=== PATIENT | male | born 1955 | race African-American/Black ===

== ENCOUNTER 2023-04-27 18:55 | Inpatient (IN) | payer MEDICARE, MEDICAID ==
[~2023-04-27] VITALS: Ht 185.4 cm; Wt 84.8 kg
[2023-04-27] MEDS ORDERED: ONDANSETRON HCL 4MG/2ML INJ IV ONE (20:30)
[2023-04-27] MEDS ORDERED: PANTOPRAZOLE SODIUM 40 MG/VIAL IV ONE (20:45)
[2023-04-27 23:31] LABS: HEMATOCRIT. 34.2 % (42.0-52.0); MEAN CORPUSCULAR HEMOGLOBIN 27.6 pg (28.0-32.0); MEAN CORPUSCULAR HGB CONC 32.1 g/dL (31.0-37.0); MEAN CORPUSCULAR VOLUME 86.1 fL (80.0-94.0); MEAN PLATELET VOLUME 7.4 fl (7.4-10.4); PLATELET 378 x1000/uL (130-400); RED BLOOD CELL COUNT 3.97 mill/uL (4.7-6.1); RED CELL DISTRIBUTION WIDTH 13.4 % (11.6-14.6); WHITE BLOOD COUNT 14.5 x1000/uL (4.5-11.0)
[2023-04-27 23:38] LABS: DIFFERENTIAL COMMENT 1
[2023-04-27 23:40] LABS: PROTHROMBIN TIME 10.8 sec (9.6-11.0)
[2023-04-27 23:43] LABS: CHLORIDE 106 mEq/L (98-107); INDEX HEMOLYSI 1 (1-3); INDEX ICTERIC 1 (1-4); INDEX LIPEMIC 1 (1-3); POTASSIUM 4.2 mEq/L (3.5-5.1); SODIUM 139 mEq/L (136-145)
[2023-04-27] MEDS ORDERED: ONDANSETRON HCL 4MG/2ML INJ IV NR (23:45)
[2023-04-27] MEDS ORDERED: PANTOPRAZOLE SODIUM 40 MG/VIAL IV NR (23:45)
[2023-04-27 23:53] LABS: ALANINE AMINOTRANSFERASE 13 IU/L (13-61); ALBUMIN 2.7 g/dL (3.4-5.0); ASPARTATE AMINOTRANSFERASE 8 IU/L (15-37); BILIRUBIN TOTAL 0.4 mg/dL (0.1-1.0); CARBON DIOXIDE 27 mEq/L (21-32); GLUCOSE 272 mg/dL (70-105); PROTEIN TOTAL 7.6 g/dL (6.0-8.3); UREA NITROGEN BLOOD 68 mg/dL (7-21)
[2023-04-28 00:08] LABS: CREATININE 7.1 mg/dL (0.6-1.3)
[2023-04-28 00:09] LABS: TROPONIN I HIGH SENSITIVITY 109 ng/L (<78)
[2023-04-28 00:24] LABS: PLATELET ESTIMATE NORMAL
[2023-04-28] MEDS ORDERED: LORAZEPAM 0.5MG TABLET PO PRN (07:30)
[2023-04-28] MEDS ORDERED: IPRATROPIUM/ALBUTEROL 0.5-3(2.5)MG/3ML NEB HHN PRN (07:30)
[2023-04-28] MEDS ORDERED: ACETAMINOPHEN 325MG TABLET PO PRN ×2 (07:30)
[2023-04-28] MEDS ORDERED: DOCUSATE SODIUM 100MG CAPSULE PO PRN (07:30)
[2023-04-28] MEDS ORDERED: ONDANSETRON HCL 4MG/2ML INJ IV PRN (07:30)
[2023-04-28] MEDS ORDERED: HYDROCODONE/ACETAMINOPHEN 5/325MG TABLET PO PRN (07:30)
[2023-04-28] MEDS ORDERED: NALOXONE HCL 0.4MG/ML VIAL IV PRN (07:45)
[2023-04-28 09:15] LABS: TROPONIN I HIGH SENSITIVITY 112 ng/L (<78)
[2023-04-28] MEDS: PANTOPRAZOLE SODIUM 40 MG/VIAL IV SCH ×2 (10:07→17:19)
[2023-04-28 12:30] VITALS: BP 196/82; PULSE 85; RESP 20; TEMP 98.4
[2023-04-28] MEDS: BLOOD SUGAR DIAGNOSTIC STRIP TEST SCH ×3 (12:41→21:06)
[2023-04-28] MEDS: CLONIDINE 0.1MG TABLET PO PRN (12:44)
[2023-04-28] MEDS ORDERED: DEXTROSE 50% WATER 50ML SYRINGE IV PRN (12:45)
[2023-04-28 12:49] VITALS: BP 196/82; PULSE 85; RESP 20; TEMP 98.4
[2023-04-28] MEDS: METOCLOPRAMIDE HCL 10MG/2ML VIAL IV SCH ×5 (13:18→23:39)
[2023-04-28] MEDS: DOCUSATE SODIUM 100MG CAPSULE PO SCH ×2 (13:18→13:48)
[2023-04-28] MEDS: INSULIN LISPRO 100 UNITS/ML SUBCUT SCH ×3 (13:19→21:06)
[2023-04-28] MEDS: SODIUM CHLORIDE 0.9% 1,000 ML IV SCH (13:45)
[2023-04-28 14:45] LABS: THYROID STIMULATING HORMONE 0.34 uIU/mL (0.36-3.74)
[2023-04-28 15:31] LABS: *AMPHETAMINES SCREEN URINE NEGATIVE (NEGATIVE); *BARBITURATES SCREEN URINE NEGATIVE (NEGATIVE); *BENZODIAZEPINES SCREEN URINE NEGATIVE (NEGATIVE); *COCAINE SCREEN URINE NEGATIVE (NEGATIVE); CANNABINOID URINE SCREEN NEGATIVE (NEGATIVE); ECSTASY MDMA SCREEN URINE NEGATIVE (NEGATIVE); METHADONE URINE SCREEN NEGATIVE (NEGATIVE); OPIATES URINE SCREEN NEGATIVE (NEGATIVE); PHENCYCLIDINE URINE SCREEN NEGATIVE (NEGATIVE)
[2023-04-28 16:00] VITALS: BP 161/66; PULSE 81; RESP 20; TEMP 97.5
[2023-04-28] MEDS ORDERED: CEFTRIAXONE 1GM PREMIX 50 ML IV SCH (16:00)
[2023-04-28] MEDS: CEFTRIAXONE 1,000 MG in DEXTROSE 5% WATER 50 ML IV SCH (17:20)
[2023-04-28 18:00] VITALS: BP 161/66; PULSE 73; RESP 20; TEMP 97.8
[2023-04-28 20:00] VITALS: PULSE 84; RESP 18; TEMP 98.6
[2023-04-28] MEDS ORDERED: HYDRALAZINE 20MG/ML VIAL IV PRN (22:30)
[2023-04-28] MEDS ORDERED: IRON SUCROSE COMPLEX 100 MG/5 ML ML IV SCH (23:00)
[2023-04-29] VITALS: BP 117/47; PULSE 98; RESP 18; TEMP 97.8
[2023-04-29 04:00] VITALS: BP 111/52; PULSE 96; RESP 18; TEMP 97
[2023-04-29] MEDS: METOCLOPRAMIDE HCL 10MG/2ML VIAL IV SCH ×3 (05:02→18:42)
[2023-04-29] MEDS: BLOOD SUGAR DIAGNOSTIC STRIP TEST SCH ×4 (05:46→21:15)
[2023-04-29] MEDS: IRON SUCROSE COMPLEX 100 MG/5 ML ML IV SCH (08:00)
[2023-04-29] MEDS: INSULIN LISPRO 100 UNITS/ML SUBCUT SCH ×4 (08:10→21:14)
[2023-04-29 09:00] VITALS: BP 181/72; PULSE 89; RESP 18; TEMP 98.1
[2023-04-29] MEDS: DOCUSATE SODIUM 100MG CAPSULE PO SCH ×3 (09:00→17:00)
[2023-04-29] MEDS: PANTOPRAZOLE SODIUM 40 MG/VIAL IV SCH ×2 (09:00→18:42)
[2023-04-29] MEDS: CLONIDINE 0.1MG TABLET PO PRN (10:18)
[2023-04-29 12:00] VITALS: BP_SYST 13; BP_SYST 163; BP_DIAS 70; PULSE 87; RESP 18; TEMP 97.9
[2023-04-29] MEDS: AMLODIPINE 10MG TABLET PO SCH (12:21)
[2023-04-29 16:00] VITALS: BP 118/79; PULSE 80; RESP 20; TEMP 97.9
[2023-04-29] MEDS: CEFTRIAXONE 1,000 MG in DEXTROSE 5% WATER 50 ML IV SCH (18:42)
[2023-04-29] MEDS: SODIUM CHLORIDE 0.9% 1,000 ML IV SCH (18:42)
[2023-04-29 20:00] VITALS: BP 161/75; PULSE 87; RESP 19; TEMP 98.4
[2023-04-30] VITALS: BP 135/56; PULSE 81; RESP 20; TEMP 98.2
[2023-04-30] MEDS: METOCLOPRAMIDE HCL 10MG/2ML VIAL IV SCH ×4 (00:20→17:02)
[2023-04-30 04:00] VITALS: BP 157/68; PULSE 83; RESP 20; TEMP 98.1
[2023-04-30] MEDS: BLOOD SUGAR DIAGNOSTIC STRIP TEST SCH ×4 (07:40→21:03)
[2023-04-30] MEDS: INSULIN LISPRO 100 UNITS/ML SUBCUT SCH ×4 (08:02→21:02)
[2023-04-30] MEDS: PANTOPRAZOLE SODIUM 40 MG/VIAL IV SCH ×2 (08:02→16:18)
[2023-04-30] MEDS: DOCUSATE SODIUM 100MG CAPSULE PO SCH ×3 (08:02→16:18)
[2023-04-30] MEDS: IRON SUCROSE COMPLEX 100 MG/5 ML ML IV SCH (08:02)
[2023-04-30] MEDS: AMLODIPINE 10MG TABLET PO SCH (08:03)
[2023-04-30 08:06] VITALS: BP 160/69; PULSE 94; RESP 20; TEMP 98.6
[2023-04-30] MEDS: SODIUM CHLORIDE 0.9% 1,000 ML IV SCH (08:11)
[2023-04-30 11:56] VITALS: BP 146/55; PULSE 94; RESP 20; TEMP 98.6
[2023-04-30 12:29] LABS: CHLORIDE 109 mEq/L (98-107); INDEX HEMOLYSI 1 (1-3); INDEX ICTERIC 1 (1-4); INDEX LIPEMIC 1 (1-3); SODIUM 141 mEq/L (136-145)
[2023-04-30 12:37] LABS: ALANINE AMINOTRANSFERASE 10 IU/L (13-61); ALBUMIN 2.6 g/dL (3.4-5.0); ASPARTATE AMINOTRANSFERASE 16 IU/L (15-37); BILIRUBIN TOTAL 0.3 mg/dL (0.1-1.0); CALCIUM 8.7 mg/dL (8.5-10.1); CARBON DIOXIDE 23 mEq/L (21-32); GLUCOSE 192 mg/dL (70-105); UREA NITROGEN BLOOD 75 mg/dL (7-21)
[2023-04-30 13:03] LABS: CREATININE 6.7 mg/dL (0.6-1.3)
[2023-04-30 13:51] LABS: T4 FREE 1.03 ng/dL (0.76-1.46)
[2023-04-30 14:12] LABS: VITAMIN B12 SERUM 798 pg/mL (211-911)
[2023-04-30 14:46] LABS: FOLIC ACID (FOLATE) SERUM > 20.00 ng/mL (>5.38)
[2023-04-30 16:04] VITALS: BP 168/54; PULSE 93; RESP 19; TEMP 98.9
[2023-04-30] MEDS: CLONIDINE 0.1MG TABLET PO PRN (16:49)
[2023-04-30] MEDS: CEFTRIAXONE 1,000 MG in DEXTROSE 5% WATER 50 ML IV SCH (17:02)
[2023-04-30] MEDS ORDERED: CHLORPROMAZINE HCL 10 MG TABLET PO NR (18:30)
[2023-04-30 20:23] VITALS: BP 117/61; PULSE 70; RESP 18; TEMP 99.1
[2023-05-01] VITALS (8 sets, daily range): BP systolic 131–188; BP diastolic 49–77; PULSE 82–98; RESP 18–20; TEMP 98.1–100.4
[2023-05-01] MEDS: METOCLOPRAMIDE HCL 10MG/2ML VIAL IV SCH ×5 (00:11→23:59)
[2023-05-01] MEDS: BLOOD SUGAR DIAGNOSTIC STRIP TEST SCH ×4 (07:40→21:40)
[2023-05-01] MEDS: INSULIN LISPRO 100 UNITS/ML SUBCUT SCH ×4 (08:10→21:53)
[2023-05-01] MEDS: PANTOPRAZOLE SODIUM 40 MG/VIAL IV SCH ×2 (08:33→16:28)
[2023-05-01] MEDS: IRON SUCROSE COMPLEX 100 MG/5 ML ML IV SCH (08:33)
[2023-05-01] MEDS: AMLODIPINE 10MG TABLET PO SCH (08:34)
[2023-05-01] MEDS: DOCUSATE SODIUM 100MG CAPSULE PO SCH ×2 (08:34→16:28)
[2023-05-01 10:02] LABS: CALCIUM 8.2 mg/dL (8.5-10.1); POTASSIUM 3.9 mEq/L (3.5-5.1)
[2023-05-01 10:08] LABS: CREATININE 6.1 mg/dL (0.6-1.3)
[2023-05-01 10:14] LABS: BASOPHILS % 1.4 % (0.0-2.0); EOSINOPHILS % 1.9 % (0.0-5.0); HEMATOCRIT. 29.8 % (42.0-52.0); HEMOGLOBIN. 9.8 g/dL (14.0-18.0); LYMPHOCYTES % 13.3 % (20.0-50.0); MEAN CORPUSCULAR HEMOGLOBIN 28.4 pg (28.0-32.0); MEAN CORPUSCULAR HGB CONC 32.9 g/dL (31.0-37.0); MEAN CORPUSCULAR VOLUME 86.4 fL (80.0-94.0); MEAN PLATELET VOLUME 7.4 fl (7.4-10.4); MONOCYTES % 12.2 % (2.0-8.0); NEUTROPHILS % 71.2 % (40.0-76.0); PLATELET 380 x1000/uL (130-400); RED BLOOD CELL COUNT 3.45 mill/uL (4.7-6.1); RED CELL DISTRIBUTION WIDTH 13.2 % (11.6-14.6); WHITE BLOOD COUNT 6.5 x1000/uL (4.5-11.0)
[2023-05-01] MEDS: CHLORPROMAZINE HCL 10 MG TABLET PO SCH ×3 (11:54→23:59)
[2023-05-01] MEDS: CLONIDINE 0.1MG TABLET PO PRN (11:54)
[2023-05-01] MEDS: HYDRALAZINE HCL 100MG TABLET PO SCH ×2 (14:15→21:53)
[2023-05-01] MEDS: ISOSORBIDE DINITRATE 10MG TABLET PO SCH (16:28)
[2023-05-01] MEDS: CEFTRIAXONE 1,000 MG in DEXTROSE 5% WATER 50 ML IV SCH (17:07)
[2023-05-02] VITALS: BP 117/54; PULSE 92; RESP 18; TEMP 97.9
[2023-05-02 04:00] VITALS: BP 152/55; PULSE 90; RESP 18; TEMP 99.6
[2023-05-02] MEDS: METOCLOPRAMIDE HCL 10MG/2ML VIAL IV SCH ×4 (06:00→18:21)
[2023-05-02] MEDS: BLOOD SUGAR DIAGNOSTIC STRIP TEST SCH ×4 (06:41→21:13)
[2023-05-02] MEDS: HYDRALAZINE HCL 100MG TABLET PO SCH ×3 (06:45→21:12)
[2023-05-02 08:00] VITALS: BP 171/72; PULSE 101; RESP 18; TEMP 97.1
[2023-05-02] MEDS: IRON SUCROSE COMPLEX 100 MG/5 ML ML IV SCH (09:05)
[2023-05-02] MEDS: PANTOPRAZOLE SODIUM 40 MG/VIAL IV SCH ×2 (09:06→18:21)
[2023-05-02] MEDS: AMLODIPINE 10MG TABLET PO SCH (09:07)
[2023-05-02] MEDS: CHLORPROMAZINE HCL 10 MG TABLET PO SCH (09:07)
[2023-05-02] MEDS: INSULIN LISPRO 100 UNITS/ML SUBCUT SCH ×4 (09:07→21:00)
[2023-05-02] MEDS: DOCUSATE SODIUM 100MG CAPSULE PO SCH ×2 (09:07→18:20)
[2023-05-02] MEDS: ISOSORBIDE DINITRATE 10MG TABLET PO SCH ×3 (09:07→18:20)
[2023-05-02 12:00] VITALS: BP 116/65; PULSE 106; RESP 18; TEMP 97.5
[2023-05-02 16:00] VITALS: BP 154/69; PULSE 98; RESP 20; TEMP 97.2
[2023-05-02 16:50] LABS: BASOPHILS % 1.3 % (0.0-2.0); EOSINOPHILS % 1.6 % (0.0-5.0); HEMATOCRIT. 29.9 % (42.0-52.0); HEMOGLOBIN. 9.8 g/dL (14.0-18.0); LYMPHOCYTES % 16.1 % (20.0-50.0); MEAN CORPUSCULAR HEMOGLOBIN 28.5 pg (28.0-32.0); MEAN CORPUSCULAR HGB CONC 32.7 g/dL (31.0-37.0); MEAN CORPUSCULAR VOLUME 87.1 fL (80.0-94.0); MEAN PLATELET VOLUME 7.2 fl (7.4-10.4); MONOCYTES % 12.8 % (2.0-8.0); NEUTROPHILS % 68.2 % (40.0-76.0); PLATELET 408 x1000/uL (130-400); RED BLOOD CELL COUNT 3.43 mill/uL (4.7-6.1); WHITE BLOOD COUNT 7.1 x1000/uL (4.5-11.0)
[2023-05-02 17:08] LABS: POTASSIUM 3.8 mEq/L (3.5-5.1)
[2023-05-02 17:26] LABS: CREATININE 6.4 mg/dL (0.6-1.3)
[2023-05-02] MEDS: CEFTRIAXONE 1,000 MG in DEXTROSE 5% WATER 50 ML IV SCH (18:21)
[2023-05-02 20:00] VITALS: BP 146/69; PULSE 108; RESP 18; TEMP 98.1
[2023-05-02] MEDS: BACLOFEN 10MG TABLET PO SCH (21:12)
[2023-05-03] VITALS (7 sets, daily range): BP systolic 136–163; BP diastolic 55–63; PULSE 78–113; RESP 16–20; TEMP 97.2–98.8; O2SAT 98
[2023-05-03] MEDS: METOCLOPRAMIDE HCL 10MG/2ML VIAL IV SCH ×5 (00:16→23:15)
[2023-05-03] MEDS: BACLOFEN 10MG TABLET PO SCH ×3 (06:00→21:11)
[2023-05-03] MEDS: HYDRALAZINE HCL 100MG TABLET PO SCH ×3 (06:00→21:11)
[2023-05-03 07:07] LABS: BASOPHILS % 1.3 % (0.0-2.0); EOSINOPHILS % 2.3 % (0.0-5.0); HEMATOCRIT. 28.4 % (42.0-52.0); HEMOGLOBIN. 9.6 g/dL (14.0-18.0); LYMPHOCYTES % 17.1 % (20.0-50.0); MEAN CORPUSCULAR HEMOGLOBIN 29.1 pg (28.0-32.0); MEAN CORPUSCULAR HGB CONC 33.7 g/dL (31.0-37.0); MEAN CORPUSCULAR VOLUME 86.5 fL (80.0-94.0); MEAN PLATELET VOLUME 7.2 fl (7.4-10.4); MONOCYTES % 12.5 % (2.0-8.0); NEUTROPHILS % 66.8 % (40.0-76.0); PLATELET 377 x1000/uL (130-400); RED BLOOD CELL COUNT 3.28 mill/uL (4.7-6.1); RED CELL DISTRIBUTION WIDTH 13.1 % (11.6-14.6); WHITE BLOOD COUNT 6.6 x1000/uL (4.5-11.0)
[2023-05-03] MEDS: BLOOD SUGAR DIAGNOSTIC STRIP TEST SCH ×4 (07:40→21:11)
[2023-05-03 07:58] LABS: CALCIUM 8.5 mg/dL (8.5-10.1)
[2023-05-03 08:00] LABS: CREATININE 6.6 mg/dL (0.6-1.3)
[2023-05-03] MEDS: INSULIN LISPRO 100 UNITS/ML SUBCUT SCH ×4 (08:10→21:00)
[2023-05-03] MEDS: CARVEDILOL 6.25 MG TABLET PO SCH ×2 (11:01→21:11)
[2023-05-03] MEDS: DOCUSATE SODIUM 100MG CAPSULE PO SCH ×2 (11:01→17:47)
[2023-05-03] MEDS: ISOSORBIDE DINITRATE 10MG TABLET PO SCH ×3 (11:01→17:47)
[2023-05-03] MEDS: CLONIDINE 0.1MG TABLET PO PRN (11:01)
[2023-05-03] MEDS: AMLODIPINE 10MG TABLET PO SCH (11:02)
[2023-05-03] MEDS: IRON SUCROSE COMPLEX 100 MG/5 ML ML IV SCH (11:02)
[2023-05-03] MEDS: PANTOPRAZOLE SODIUM 40 MG/VIAL IV SCH ×2 (11:02→17:47)
[2023-05-03] MEDS: CEFTRIAXONE 1,000 MG in DEXTROSE 5% WATER 50 ML IV SCH (17:47)
[2023-05-04] VITALS: BP 134/56; PULSE 81; RESP 20; TEMP 97.8
[2023-05-05] MEDS ORDERED: INSULIN (08:53)
[2023-05-05] MEDS ORDERED: ONDA4TAB50 PO (08:53)
[2023-05-05] MEDS ORDERED: AMLODIPINE (08:53)
[2023-05-05] MEDS ORDERED: PANT40TA51 PO (08:53)
[2023-05-05] MEDS ORDERED: CLON1PAT10 TD (08:53)
[2023-05-05] MEDS ORDERED: METO5TAB86 PO (08:53)
[2023-05-05] MEDS ORDERED: DOCU-150 PO (08:53)
[2023-05-05] MEDS ORDERED: CARV6.2548 PO (08:53)
[2023-05-05] MEDS ORDERED: BACL-141 PO (08:53)
[2023-05-05] MEDS ORDERED: ISOS10TA2 PO (08:53)
[2023-05-05] MEDS ORDERED: PODO3.5G TP (08:53)
[2023-05-05] MEDS ORDERED: TOPUD PO (08:53)
[2023-05-05] MEDS ORDERED: HYDR100T26 PO (08:53)
[2023-05-07] MEDS ORDERED: GABA-532 PO (17:59)
[2023-05-07] MEDS ORDERED: METO-539 PO (17:59)
[2023-05-07] MEDS ORDERED: CLOP75TA33 PO (17:59)
[2023-05-07] MEDS ORDERED: CALC0.253 PO (17:59)
[2023-05-07] MEDS ORDERED: SEVE800T8 PO (17:59)
[2023-05-07] MEDS ORDERED: AMLO10TA80 PO (17:59)
[2023-05-07] MEDS ORDERED: ATOR20TA65 PO (17:59)
[2023-05-07] MEDS ORDERED: HYDR-4135 PO (17:59)
[2023-05-07] MEDS ORDERED: FOLI-43 PO (17:59)
[2023-05-07] MEDS ORDERED: [UNRECOGNIZED DRUG - OTHER] TP (17:59)
[2023-05-07] MEDS ORDERED: INSU100V3 SQ (18:01)
[2023-05-07] MEDS ORDERED: INSU100I66 SUBCUT (18:01)
== END 2023-05-04 01:30 | DRG 368 ==
LOC: ER 18:55 → MICUSO 04-28 00:17 → 7WST 04-28 12:30
PROVIDERS: ADMIT Internal Medicine; ATTEND Internal Medicine
DX: K20.91 Esophagitis, unspecified with bleeding (principal); N18.6 End stage renal disease; N17.9 Acute kidney failure, unspecified; I50.32 Chronic diastolic (congestive) heart failure; E44.0 Moderate protein-calorie malnutrition; I13.2 Hypertensive heart and chronic kidney disease with heart failure and with stage 5 chronic kidney disease, or end stage renal disease; I16.0 Hypertensive urgency; D63.8 Anemia in other chronic diseases classified elsewhere; D72.829 Elevated white blood cell count, unspecified; D50.9 Iron deficiency anemia, unspecified; Z20.822 Contact with and (suspected) exposure to COVID-19; E03.9 Hypothyroidism, unspecified; R06.6 Hiccough; I25.10 Atherosclerotic heart disease of native coronary artery without angina pectoris; E78.00 Pure hypercholesterolemia, unspecified; E11.65 Type 2 diabetes mellitus with hyperglycemia; E11.22 Type 2 diabetes mellitus with diabetic chronic kidney disease; F17.210 Nicotine dependence, cigarettes, uncomplicated; E05.90 Thyrotoxicosis, unspecified without thyrotoxic crisis or storm; I07.1 Rheumatic tricuspid insufficiency; E11.51 Type 2 diabetes mellitus with diabetic peripheral angiopathy without gangrene; Z86.73 Personal history of transient ischemic attack (TIA), and cerebral infarction without residual deficits; Z99.2 Dependence on renal dialysis; Z79.4 Long term (current) use of insulin; Z91.199 Patient's noncompliance with other medical treatment and regimen due to unspecified reason; Z68.24 Body mass index [BMI] 24.0-24.9, adult; E11.43 Type 2 diabetes mellitus with diabetic autonomic (poly)neuropathy; K31.84 Gastroparesis
CPT/HCPCS: 36415; 71045; 74176; 80048; 80053; 80305; 82607; 82746; 82962; 83036; 83540; 83550; 84145; 84439; 84443; 84481; 84484; 85025; 85044; 87426; 93005; 93306; 99285; C9113; J0360; J0696; J1815; J2405; J2765; J7030; J7060; Q0161

== ENCOUNTER 2024-02-26 10:11 | Inpatient (IN) | payer MEDICARE, MEDICAID ==
[~2024-02-26] VITALS: Ht 188 cm; Wt 97.1 kg
[~2024-02-26 10:11] MED LIST: AMLO10TA80 PO; ATOR10TA PO; ATOR20TA65 PO; CALC0.253 PO; CLOP75TA33 PO; DILT30TA37 PO; FOLI-43 PO; GABA-532 PO; HYDR50TA39 PO; INSU100I28 SQ; INSU100I95 SUBCUT; INSU100V3 SQ; METO-539 PO; NEPVIT MT; PANT40TA51 PO; SEVE800T8 PO; [UNRECOGNIZED DRUG - OTHER] TP
[2024-02-26] MEDS ORDERED: SODIUM CHLORIDE 0.9% 1000ML BAG (SEPSIS BOLUS) IV ONE (10:30)
[2024-02-26 11:05] LABS: HEMATOCRIT. 33.7 % (42.0-52.0); HEMOGLOBIN. 11.1 g/dL (14.0-18.0); MEAN CORPUSCULAR HEMOGLOBIN 29.2 pg (28.0-32.0); MEAN CORPUSCULAR VOLUME 88.4 fL (80.0-94.0); PLATELET 389 x1000/uL (130-400); RED BLOOD CELL COUNT 3.81 mill/uL (4.7-6.1); RED CELL DISTRIBUTION WIDTH 14.8 % (11.6-14.6); WHITE BLOOD COUNT 17.9 x1000/uL (4.5-11.0)
[2024-02-26 11:15] LABS: PROTHROMBIN TIME 10.7 sec (9.6-11.0)
[2024-02-26 11:23] LABS: DIFFERENTIAL COMMENT 1
[2024-02-26] MEDS: CEFTRIAXONE 1GM/50ML 50 ML IV ONE ×2 (11:24→12:19)
[2024-02-26 11:25] LABS: LACTIC ACID 3.1 mmol/L (0.4-2.0)
[2024-02-26 11:34] LABS: CHLORIDE 75 mEq/L (98-107); POTASSIUM 3.5 mEq/L (3.5-5.1); SODIUM 131 mEq/L (136-145)
[2024-02-26 11:35] LABS: CALCIUM 10.5 mg/dL (8.7-10.4)
[2024-02-26 11:40] LABS: UREA NITROGEN BLOOD 66 mg/dL (9-23)
[2024-02-26 12:09] LABS: CREATININE 9.7 mg/dL (0.6-1.3); GLUCOSE 555 mg/dL (70-105)
[2024-02-26 12:10] LABS: CARBON DIOXIDE > 40 mEq/L (21-32)
[2024-02-26] MEDS: METOCLOPRAMIDE HCL 10MG/2ML VIAL IV ONE (12:17)
[2024-02-26] MEDS: PANTOPRAZOLE SODIUM 40 MG/VIAL IV ONE (12:17)
[2024-02-26] MEDS: SODIUM CHLORIDE 0.9% 500 ML IV ONE (12:18)
[2024-02-26 12:26] LABS: PLATELET ESTIMATE NORMAL
[2024-02-26] MEDS ORDERED: DEXTROSE 50% WATER 50ML SYRINGE IV PRN (15:00)
[2024-02-26] MEDS ORDERED: IPRATROPIUM/ALBUTEROL 0.5-3(2.5)MG/3ML NEB HHN PRN (15:00)
[2024-02-26 15:09] LABS: BG BASE EXCESS 16.9 mmol/L (-2.0-2.0); BG CARBOXYHEMOGLOBIN 0.8 % (0.5-1.5); BG FRACTION INSPIRED OXYGEN 21; BG HCO3 ACT 42.8 mmol/L (22.0-26.0); BG METHEMOGLOBIN 0.1 % (0.0-1.5); BG OXYGEN SATURATION 88.9 % (92.0-98.5); BG OXYHEMOGLOBIN 88.1 % (94.0-97.0); BG PCO2 56.1 mmHg (35.0-45.0); BG SAMPLE SITE RIGHT RADIAL; BG TOTAL HEMOGLOBIN 12.6 g/dL (12.0-18.0); BG VENT MODE ROOM AIR
[2024-02-26] MEDS: INSULIN LISPRO 100 UNITS/ML SUBCUT SCH (17:15)
[2024-02-26] MEDS: BLOOD SUGAR DIAGNOSTIC STRIP TEST SCH (17:27)
[2024-02-26] MEDS ORDERED: [UNRECOGNIZED DRUG - REMARK] XX SCH (18:00)
[2024-02-26] MEDS: INSULIN GLARGINE 100 UNITS/ML SUBCUT SCH (18:36)
[2024-02-26] MEDS: PANTOPRAZOLE SODIUM 40 MG/VIAL IV SCH (18:37)
[2024-02-26] MEDS: SODIUM CHLORIDE 0.9% 1000ML BAG (SEPSIS BOLUS) IV NR (18:54)
[2024-02-26] MEDS: CEFEPIME 1GM/50ML 50 ML IV SCH (20:50)
[2024-02-26 21:27] VITALS: BP 151/125; PULSE 107; RESP 14; TEMP 36.72516; O2SAT 95
[2024-02-26 21:30] VITALS: BP 151/125; PULSE 107; RESP 14; TEMP 36.7516
[2024-02-26 22:00] VITALS: BP 140/65; PULSE 101; RESP 27; O2SAT 95
[2024-02-26] MEDS: INSULIN LISPRO 100 UNITS/ML SUBCUT NR (22:35)
[2024-02-26] MEDS: SUCRALFATE 1G TABLET PO SCH (22:36)
[2024-02-26] MEDS: IOHEXOL-300 100 ML BOTTLE ONE (23:16)
[2024-02-26] MEDS: ONDANSETRON HCL 4MG/2ML INJ IV PRN (23:59)
[2024-02-27] VITALS (15 sets, daily range): BP systolic 84–172; BP diastolic 48–76; PULSE 71–102; RESP 10–31; TEMP 36.6696–37.05852; O2SAT 98–100
[2024-02-27] MEDS: ACETAMINOPHEN 325MG TABLET PO PRN (06:29)
[2024-02-27] MEDS ORDERED: SUCRALFATE 1G TABLET PO SCH (06:45)
[2024-02-27] MEDS ORDERED: PANTOPRAZOLE 40MG DR TABLET PO SCH (10:00)
[2024-02-27] MEDS: FOLIC ACID/VITAMIN B COMP W-C TABLET PO SCH (10:05)
[2024-02-27] MEDS: AMLODIPINE 10MG TABLET PO SCH (10:05)
[2024-02-27] MEDS: CLOPIDOGREL 75MG TABLET PO SCH (10:05)
[2024-02-27] MEDS: GABAPENTIN 300MG CAPSULE PO SCH (10:05)
[2024-02-27] MEDS: METOPROLOL TARTRATE 50MG TABLET PO SCH (10:05)
[2024-02-27] MEDS: METOCLOPRAMIDE HCL 10MG/2ML VIAL IV PRN (10:05)
[2024-02-27 12:43] LABS: BASOPHILS % 0.4 % (0.0-2.0); EOSINOPHILS % 0.6 % (0.0-5.0); HEMATOCRIT. 32.1 % (42.0-52.0); HEMOGLOBIN. 10.4 g/dL (14.0-18.0); LYMPHOCYTES % 9.5 % (20.0-50.0); MEAN CORPUSCULAR HEMOGLOBIN 28.7 pg (28.0-32.0); MEAN CORPUSCULAR HGB CONC 32.3 g/dL (31.0-37.0); MEAN CORPUSCULAR VOLUME 89.1 fL (80.0-94.0); MEAN PLATELET VOLUME 7.7 fl (7.4-10.4); MONOCYTES % 9.7 % (2.0-8.0); NEUTROPHILS % 79.8 % (40.0-76.0); PLATELET 342 x1000/uL (130-400); WHITE BLOOD COUNT 15.4 x1000/uL (4.5-11.0)
[2024-02-27 12:53] LABS: CHLORIDE 78 mEq/L (98-107); POTASSIUM 3.6 mEq/L (3.5-5.1); SODIUM 131 mEq/L (136-145)
[2024-02-27 12:54] LABS: CALCIUM 9.6 mg/dL (8.7-10.4)
[2024-02-27 12:59] LABS: ALANINE AMINOTRANSFERASE < 7 IU/L (10-49); UREA NITROGEN BLOOD 70 mg/dL (9-23)
[2024-02-27 13:01] LABS: ALBUMIN 3.7 g/dL (3.2-4.8); ASPARTATE AMINOTRANSFERASE 17 IU/L (<34); BILIRUBIN TOTAL 0.2 mg/dL (0.1-1.0); PROTEIN TOTAL 6.3 g/dL (6.0-8.3)
[2024-02-27] MEDS: DILTIAZEM HCL 30MG TABLET PO SCH (13:23)
[2024-02-27] MEDS: HYDRALAZINE HCL 50MG TABLET PO SCH (13:23)
[2024-02-27] MEDS: SEVELAMER CARBONATE 800 MG TABLET PO SCH (13:23)
[2024-02-27 13:25] LABS: GLUCOSE 322 mg/dL (70-105)
[2024-02-27 13:28] LABS: CARBON DIOXIDE > 40 mEq/L (21-32); CREATININE 11.1 mg/dL (0.6-1.3)
[2024-02-27] MEDS: BACLOFEN 10MG TABLET PO SCH (17:58)
[2024-02-27] MEDS: ATORVASTATIN CALCIUM 20MG TABLET PO SCH (20:27)
[2024-02-27] MEDS: IOHEXOL-300 100 ML BOTTLE ONE (23:22)
[2024-02-28] VITALS (12 sets, daily range): BP systolic 87–145; BP diastolic 56–82; PULSE 70–83; RESP 9–32; TEMP 36.6696–37.05852; O2SAT 96–100
[2024-02-28] MEDS: DOCUSATE SODIUM 100MG CAPSULE PO PRN (10:01)
[2024-02-28] MEDS: VANCOMYCIN 1.5GM/250ML IV NR (17:57)
[2024-02-28 18:10] LABS: BG BASE EXCESS 13.8 mmol/L (-2.0-2.0); BG CARBOXYHEMOGLOBIN 0.7 % (0.5-1.5); BG DEOXYHEMOGLOBIN 5.8 % (0.0-5.0); BG FRACTION INSPIRED OXYGEN 28; BG HCO3 ACT 40.4 mmol/L (22.0-26.0); BG METHEMOGLOBIN 0.3 % (0.0-1.5); BG OXYGEN SATURATION 94.1 % (92.0-98.5); BG OXYHEMOGLOBIN 93.2 % (94.0-97.0); BG PH 7.432 (7.350-7.450); BG PO2 77.2 mmHg (75.0-100.0); BG SAMPLE SITE RIGHT RADIAL; BG TOTAL HEMOGLOBIN 11.3 g/dL (12.0-18.0); BG VENT MODE NASAL CANNULA
[2024-02-28 22:21] LABS: AMMONIA 40 uMol/L (<32)
[2024-02-29] VITALS (19 sets, daily range): BP systolic 106–158; BP diastolic 51–103; PULSE 74–103; RESP 8–22; TEMP 36.44736–36.89184; O2SAT 94–100
[2024-02-29 07:13] LABS: BASOPHILS % 0.9 % (0.0-2.0); EOSINOPHILS % 2.3 % (0.0-5.0); HEMATOCRIT. 32.6 % (42.0-52.0); HEMOGLOBIN. 10.8 g/dL (14.0-18.0); LYMPHOCYTES % 16.6 % (20.0-50.0); MEAN CORPUSCULAR HGB CONC 33.1 g/dL (31.0-37.0); MEAN CORPUSCULAR VOLUME 87.4 fL (80.0-94.0); MEAN PLATELET VOLUME 7.4 fl (7.4-10.4); NEUTROPHILS % 66.2 % (40.0-76.0); PLATELET 370 x1000/uL (130-400); RED BLOOD CELL COUNT 3.73 mill/uL (4.7-6.1); RED CELL DISTRIBUTION WIDTH 14.7 % (11.6-14.6); WHITE BLOOD COUNT 7.9 x1000/uL (4.5-11.0)
[2024-02-29 07:24] LABS: POTASSIUM 3.5 mEq/L (3.5-5.1)
[2024-02-29 07:25] LABS: CALCIUM 9.3 mg/dL (8.7-10.4)
[2024-02-29 07:40] LABS: CREATININE 14.3 mg/dL (0.6-1.3)
[2024-02-29] MEDS: MIDODRINE HCL 5MG TABLET PO SCH (13:00)
[2024-02-29 16:58] LABS: BASOPHILS % 0.7 % (0.0-2.0); EOSINOPHILS % 2.2 % (0.0-5.0); HEMATOCRIT. 36.3 % (42.0-52.0); HEMOGLOBIN. 11.8 g/dL (14.0-18.0); LYMPHOCYTES % 10.1 % (20.0-50.0); MEAN CORPUSCULAR HEMOGLOBIN 28.8 pg (28.0-32.0); MEAN CORPUSCULAR HGB CONC 32.5 g/dL (31.0-37.0); MEAN CORPUSCULAR VOLUME 88.5 fL (80.0-94.0); MEAN PLATELET VOLUME 7.3 fl (7.4-10.4); MONOCYTES % 13.3 % (2.0-8.0); NEUTROPHILS % 73.7 % (40.0-76.0); PLATELET 436 x1000/uL (130-400); RED CELL DISTRIBUTION WIDTH 14.8 % (11.6-14.6); WHITE BLOOD COUNT 8.3 x1000/uL (4.5-11.0)
[2024-02-29 17:07] LABS: CARBON DIOXIDE 30 mEq/L (21-32); CHLORIDE 103 mEq/L (98-107); SODIUM 144 mEq/L (136-145)
[2024-02-29 17:08] LABS: CALCIUM 9.9 mg/dL (8.7-10.4)
[2024-02-29 17:12] LABS: GLUCOSE 97 mg/dL (70-105)
[2024-02-29 17:13] LABS: UREA NITROGEN BLOOD 41 mg/dL (9-23)
[2024-02-29 17:14] LABS: ALANINE AMINOTRANSFERASE 8 IU/L (10-49); ALBUMIN 4.5 g/dL (3.2-4.8); AMMONIA < 17 uMol/L (<32); ASPARTATE AMINOTRANSFERASE 19 IU/L (<34)
[2024-02-29 17:15] LABS: BILIRUBIN TOTAL 0.2 mg/dL (0.1-1.0); PROTEIN TOTAL 7.7 g/dL (6.0-8.3)
[2024-02-29 17:25] LABS: CREATININE 7.2 mg/dL (0.6-1.3); POTASSIUM 2.7 mEq/L (3.5-5.1)
[2024-02-29 17:32] LABS: BG BASE EXCESS 1.4 mmol/L (-2.0-2.0); BG CARBOXYHEMOGLOBIN 0.3 % (0.5-1.5); BG DEOXYHEMOGLOBIN 1.7 % (0.0-5.0); BG FRACTION INSPIRED OXYGEN 32; BG HCO3 ACT 27.2 mmol/L (22.0-26.0); BG METHEMOGLOBIN 0.1 % (0.0-1.5); BG OXYGEN SATURATION 98.3 % (92.0-98.5); BG OXYHEMOGLOBIN 97.9 % (94.0-97.0); BG PCO2 47.8 mmHg (35.0-45.0); BG PH 7.373 (7.350-7.450); BG PO2 132.2 mmHg (75.0-100.0); BG SAMPLE SITE RIGHT RADIAL; BG TOTAL HEMOGLOBIN 12.2 g/dL (12.0-18.0); BG VENT MODE NASAL CANNULA
[2024-02-29 18:02] LABS: HEPATITIS B SURFACE ANTIGEN NEGATIVE (Negative)
[2024-02-29 18:23] LABS: HEPATITIS A AB IGM NEGATIVE (Negative); HEPATITIS B CORE AB IGM NEGATIVE (Negative)
[2024-02-29 18:24] LABS: HEPATITIS C AB NON REACTIVE (Neg) (Negative)
[2024-02-29] MEDS: LACTULOSE 20G/30ML UDC PO SCH (20:35)
[2024-02-29] MEDS: POTASSIUM CHLORIDE 20MEQ TABLET SR PO NR (20:35)
[2024-02-29] MEDS: VANCOMYCIN 750MG/250ML 250 ML IV SCH (22:32)
[2024-03-01] VITALS (17 sets, daily range): BP systolic 88–170; BP diastolic 58–79; PULSE 80–112; RESP 11–20; TEMP 36.33624–37.11408; O2SAT 93–100
[2024-03-01] MEDS: POTASSIUM CHLORIDE 40 MEQ in DEXT 5% WATER 500 ML IV NR (00:02)
[2024-03-01 07:09] LABS: BASOPHILS % 0.9 % (0.0-2.0); EOSINOPHILS % 0.9 % (0.0-5.0); HEMATOCRIT. 31.4 % (42.0-52.0); HEMOGLOBIN. 10.2 g/dL (14.0-18.0); LYMPHOCYTES % 10.5 % (20.0-50.0); MEAN CORPUSCULAR HEMOGLOBIN 29.1 pg (28.0-32.0); MEAN CORPUSCULAR HGB CONC 32.5 g/dL (31.0-37.0); MEAN CORPUSCULAR VOLUME 89.4 fL (80.0-94.0); MEAN PLATELET VOLUME 7.4 fl (7.4-10.4); NEUTROPHILS % 74.7 % (40.0-76.0); PLATELET 368 x1000/uL (130-400); RED BLOOD CELL COUNT 3.51 mill/uL (4.7-6.1); RED CELL DISTRIBUTION WIDTH 15.3 % (11.6-14.6); WHITE BLOOD COUNT 9.2 x1000/uL (4.5-11.0)
[2024-03-01 07:11] LABS: CARBON DIOXIDE 28 mEq/L (21-32); CHLORIDE 96 mEq/L (98-107); POTASSIUM 4.7 mEq/L (3.5-5.1); SODIUM 136 mEq/L (136-145)
[2024-03-01 07:12] LABS: CALCIUM 9.3 mg/dL (8.7-10.4)
[2024-03-01 07:16] LABS: AMMONIA < 17 uMol/L (<32)
[2024-03-01 07:17] LABS: UREA NITROGEN BLOOD 62 mg/dL (9-23)
[2024-03-01 07:18] LABS: ALANINE AMINOTRANSFERASE < 7 IU/L (10-49); ALBUMIN 3.9 g/dL (3.2-4.8); ASPARTATE AMINOTRANSFERASE 17 IU/L (<34)
[2024-03-01 07:19] LABS: BILIRUBIN TOTAL 0.2 mg/dL (0.1-1.0)
[2024-03-01 07:20] LABS: CREATININE 11.6 mg/dL (0.6-1.3); GLUCOSE 286 mg/dL (70-105)
[2024-03-02] VITALS (12 sets, daily range): BP systolic 103–159; BP diastolic 60–80; PULSE 74–97; RESP 11–35; TEMP 36.33624–36.9474; O2SAT 95–100
[2024-03-02 07:02] LABS: HEMATOCRIT. 31.9 % (42.0-52.0); HEMOGLOBIN. 10.5 g/dL (14.0-18.0); MEAN CORPUSCULAR HEMOGLOBIN 28.9 pg (28.0-32.0); MEAN CORPUSCULAR HGB CONC 32.9 g/dL (31.0-37.0); MEAN PLATELET VOLUME 7.3 fl (7.4-10.4); PLATELET 358 x1000/uL (130-400); RED BLOOD CELL COUNT 3.63 mill/uL (4.7-6.1); RED CELL DISTRIBUTION WIDTH 14.7 % (11.6-14.6); WHITE BLOOD COUNT 8.9 x1000/uL (4.5-11.0)
[2024-03-02 07:09] LABS: DIFFERENTIAL COMMENT 1
[2024-03-02 07:10] LABS: AMMONIA < 17 uMol/L (<32); CARBON DIOXIDE 28 mEq/L (21-32); CHLORIDE 98 mEq/L (98-107); POTASSIUM 4.4 mEq/L (3.5-5.1); SODIUM 136 mEq/L (136-145)
[2024-03-02 07:11] LABS: CALCIUM 9.6 mg/dL (8.7-10.4)
[2024-03-02 07:16] LABS: GLUCOSE 193 mg/dL (70-105); UREA NITROGEN BLOOD 54 mg/dL (9-23)
[2024-03-02 07:17] LABS: ALBUMIN 3.9 g/dL (3.2-4.8)
[2024-03-02 07:18] LABS: ALANINE AMINOTRANSFERASE < 7 IU/L (10-49); ASPARTATE AMINOTRANSFERASE 13 IU/L (<34); BILIRUBIN TOTAL 0.2 mg/dL (0.1-1.0); PROTEIN TOTAL 6.7 g/dL (6.0-8.3)
[2024-03-02 08:12] LABS: CREATININE 11.6 mg/dL (0.6-1.3)
[2024-03-02 15:17] LABS: PLATELET ESTIMATE NORMAL
[2024-03-03] VITALS (15 sets, daily range): BP systolic 102–159; BP diastolic 56–79; PULSE 72–95; RESP 12–24; TEMP 36.22512–36.6696; O2SAT 98–100
[2024-03-03 08:07] LABS: CHLORIDE 95 mEq/L (98-107); POTASSIUM 4.1 mEq/L (3.5-5.1); SODIUM 135 mEq/L (136-145)
[2024-03-03 08:08] LABS: AMMONIA < 17 uMol/L (<32); CARBON DIOXIDE 26 mEq/L (21-32); HEMATOCRIT. 34.8 % (42.0-52.0); HEMOGLOBIN. 11.2 g/dL (14.0-18.0); MEAN CORPUSCULAR HEMOGLOBIN 28.6 pg (28.0-32.0); MEAN CORPUSCULAR HGB CONC 32.2 g/dL (31.0-37.0); MEAN CORPUSCULAR VOLUME 88.9 fL (80.0-94.0); MEAN PLATELET VOLUME 7.5 fl (7.4-10.4); PLATELET 395 x1000/uL (130-400); RED BLOOD CELL COUNT 3.92 mill/uL (4.7-6.1); RED CELL DISTRIBUTION WIDTH 14.6 % (11.6-14.6)
[2024-03-03 08:09] LABS: CALCIUM 9.7 mg/dL (8.7-10.4)
[2024-03-03 08:14] LABS: GLUCOSE 175 mg/dL (70-105); UREA NITROGEN BLOOD 47 mg/dL (9-23)
[2024-03-03 08:15] LABS: ALBUMIN 4.2 g/dL (3.2-4.8)
[2024-03-03 08:16] LABS: ALANINE AMINOTRANSFERASE 7 IU/L (10-49); ASPARTATE AMINOTRANSFERASE 18 IU/L (<34); BILIRUBIN TOTAL < 0.2 mg/dL (0.1-1.0); PROTEIN TOTAL 7.6 g/dL (6.0-8.3)
[2024-03-03 08:23] LABS: DIFFERENTIAL COMMENT 1
[2024-03-03 08:27] LABS: CREATININE 10.5 mg/dL (0.6-1.3)
[2024-03-03 11:48] LABS: PLATELET ESTIMATE NORMAL
[2024-03-04] VITALS (12 sets, daily range): BP systolic 117–155; BP diastolic 53–72; PULSE 72–88; RESP 10–19; TEMP 36.114–36.22512; O2SAT 94–100
[2024-03-04 07:13] LABS: CHLORIDE 94 mEq/L (98-107); POTASSIUM 4.3 mEq/L (3.5-5.1); SODIUM 133 mEq/L (136-145)
[2024-03-04 07:14] LABS: CALCIUM 9.5 mg/dL (8.7-10.4); CARBON DIOXIDE 27 mEq/L (21-32)
[2024-03-04 07:19] LABS: GLUCOSE 301 mg/dL (70-105); HEMATOCRIT. 31.4 % (42.0-52.0); HEMOGLOBIN. 10.3 g/dL (14.0-18.0); MEAN CORPUSCULAR HEMOGLOBIN 28.8 pg (28.0-32.0); MEAN CORPUSCULAR HGB CONC 32.6 g/dL (31.0-37.0); MEAN CORPUSCULAR VOLUME 88.1 fL (80.0-94.0); MEAN PLATELET VOLUME 7.6 fl (7.4-10.4); PLATELET 373 x1000/uL (130-400); RED BLOOD CELL COUNT 3.57 mill/uL (4.7-6.1); RED CELL DISTRIBUTION WIDTH 14.7 % (11.6-14.6); UREA NITROGEN BLOOD 66 mg/dL (9-23); WHITE BLOOD COUNT 9.1 x1000/uL (4.5-11.0)
[2024-03-04 07:20] LABS: AMMONIA < 17 uMol/L (<32)
[2024-03-04 07:21] LABS: ALANINE AMINOTRANSFERASE 8 IU/L (10-49); ALBUMIN 3.9 g/dL (3.2-4.8); ASPARTATE AMINOTRANSFERASE 16 IU/L (<34); BILIRUBIN TOTAL < 0.2 mg/dL (0.1-1.0); PROTEIN TOTAL 6.6 g/dL (6.0-8.3)
[2024-03-04 07:24] LABS: DIFFERENTIAL COMMENT 1
[2024-03-04 15:55] LABS: PLATELET ESTIMATE NORMAL
[2024-03-05] VITALS (13 sets, daily range): BP systolic 114–166; BP diastolic 54–102; PULSE 74–95; RESP 7–24; TEMP 36.114–37.11408; O2SAT 85–100
[2024-03-05] MEDS: INSULIN GLARGINE 100 UNITS/ML SUBCUT SCH (11:28)
[2024-03-05] MEDS: LACTULOSE 20G/30ML UDC PO SCH (14:02)
[2024-03-05 15:00] LABS: BG BASE EXCESS 3.2 mmol/L (-2.0-2.0); BG CARBOXYHEMOGLOBIN 0.2 % (0.5-1.5); BG FRACTION INSPIRED OXYGEN 32; BG HCO3 ACT 27.6 mmol/L (22.0-26.0); BG METHEMOGLOBIN 0.3 % (0.0-1.5); BG OXYHEMOGLOBIN 98.5 % (94.0-97.0); BG PCO2 41.7 mmHg (35.0-45.0); BG PH 7.439 (7.350-7.450); BG PO2 133.8 mmHg (75.0-100.0); BG SAMPLE SITE RIGHT RADIAL; BG TOTAL HEMOGLOBIN 10.9 g/dL (12.0-18.0); BG VENT MODE NASAL CANNULA
[2024-03-05] MEDS: VANCOMYCIN 500MG/100ML IV NR (17:48)
[2024-03-06] VITALS (7 sets, daily range): BP systolic 110–158; BP diastolic 51–86; PULSE 82–98; RESP 7–19; TEMP 36.16956–36.9474; O2SAT 91–100
[2024-03-06] MEDS: SODIUM CHLORIDE 0.9% 1,000 ML IV SCH (19:24)
[2024-03-07] VITALS (9 sets, daily range): BP systolic 104–141; BP diastolic 54–81; PULSE 71–109; RESP 8–23; TEMP 36.22512–37.33632; O2SAT 93–100
[2024-03-07 07:08] LABS: HEMATOCRIT. 30.6 % (42.0-52.0); HEMOGLOBIN. 9.7 g/dL (14.0-18.0); MEAN CORPUSCULAR HEMOGLOBIN 27.7 pg (28.0-32.0); MEAN CORPUSCULAR HGB CONC 31.7 g/dL (31.0-37.0); MEAN CORPUSCULAR VOLUME 87.5 fL (80.0-94.0); MEAN PLATELET VOLUME 7.6 fl (7.4-10.4); PLATELET 451 x1000/uL (130-400); RED CELL DISTRIBUTION WIDTH 14.7 % (11.6-14.6); WHITE BLOOD COUNT 16.5 x1000/uL (4.5-11.0)
[2024-03-07 07:13] LABS: DIFFERENTIAL COMMENT 1
[2024-03-07 07:14] LABS: POTASSIUM 4.4 mEq/L (3.5-5.1)
[2024-03-07 07:16] LABS: CALCIUM 10.2 mg/dL (8.7-10.4)
[2024-03-07 07:26] LABS: CREATININE 15.1 mg/dL (0.6-1.3)
[2024-03-07 16:11] LABS: PLATELET ESTIMATE SLIGHTLY INCREASED
[2024-03-07] MEDS: METOCLOPRAMIDE HCL 10MG/2ML VIAL IV SCH (17:31)
[2024-03-08] VITALS (65 sets, daily range): BP systolic 61–196; BP diastolic 45–93; PULSE 71–110; RESP 7–27; TEMP 36.3918–39.00312; O2SAT 92–100
[2024-03-08 03:59] LABS: BG BASE EXCESS 2.4 mmol/L (-2.0-2.0); BG CARBOXYHEMOGLOBIN 0.3 % (0.5-1.5); BG DEOXYHEMOGLOBIN 1.7 % (0.0-5.0); BG FRACTION INSPIRED OXYGEN 100; BG HCO3 ACT 26.6 mmol/L (22.0-26.0); BG METHEMOGLOBIN 0.3 % (0.0-1.5); BG OXYGEN SATURATION 98.3 % (92.0-98.5); BG OXYHEMOGLOBIN 97.7 % (94.0-97.0); BG PCO2 39.8 mmHg (35.0-45.0); BG PH 7.443 (7.350-7.450); BG PO2 108.5 mmHg (75.0-100.0); BG SAMPLE SITE RIGHT RADIAL; BG TOTAL HEMOGLOBIN 13.5 g/dL (12.0-18.0); BG VENT MODE MASK - NRB
[2024-03-08] MEDS: ACETAMINOPHEN 325MG TABLET PO PRN (04:44)
[2024-03-08 06:31] LABS: HEMATOCRIT. 30.4 % (42.0-52.0); HEMOGLOBIN. 9.8 g/dL (14.0-18.0); MEAN CORPUSCULAR HEMOGLOBIN 28.3 pg (28.0-32.0); MEAN CORPUSCULAR HGB CONC 32.1 g/dL (31.0-37.0); MEAN CORPUSCULAR VOLUME 88.2 fL (80.0-94.0); MEAN PLATELET VOLUME 7.7 fl (7.4-10.4); PLATELET 476 x1000/uL (130-400); RED BLOOD CELL COUNT 3.45 mill/uL (4.7-6.1); RED CELL DISTRIBUTION WIDTH 14.7 % (11.6-14.6); WHITE BLOOD COUNT 23.7 x1000/uL (4.5-11.0)
[2024-03-08 06:32] LABS: POTASSIUM 4.2 mEq/L (3.5-5.1)
[2024-03-08 06:34] LABS: CALCIUM 10.4 mg/dL (8.7-10.4)
[2024-03-08 06:36] LABS: DIFFERENTIAL COMMENT 1
[2024-03-08 06:45] LABS: CREATININE 14.6 mg/dL (0.6-1.3)
[2024-03-08] MEDS ORDERED: ETOMIDATE 2MG/ML 10ML VIAL IV ONE (08:00)
[2024-03-08 09:51] LABS: BG BASE EXCESS 1.1 mmol/L (-2.0-2.0); BG CARBOXYHEMOGLOBIN 0.2 % (0.5-1.5); BG DEOXYHEMOGLOBIN 1.2 % (0.0-5.0); BG FRACTION INSPIRED OXYGEN 100; BG HCO3 ACT 26.3 mmol/L (22.0-26.0); BG METHEMOGLOBIN 0.1 % (0.0-1.5); BG OXYGEN SATURATION 98.8 % (92.0-98.5); BG OXYHEMOGLOBIN 98.5 % (94.0-97.0); BG PCO2 43.9 mmHg (35.0-45.0); BG PH 7.395 (7.350-7.450); BG PO2 145.2 mmHg (75.0-100.0); BG SAMPLE SITE RIGHT BRACHIAL; BG TOTAL HEMOGLOBIN 11.8 g/dL (12.0-18.0); BG VENT MODE VENT - AC
[2024-03-08] MEDS: PROPOFOL 10MG/ML 100ML 100 ML IV PRN (10:04)
[2024-03-08] MEDS: METRONIDAZOLE 500 MG PREMIX 100 ML IV SCH (13:20)
[2024-03-08] MEDS: NOREPINEPHRINE 8MG/250ML PMX 250 ML IV PRN (14:36)
[2024-03-08] MEDS: IPRATROPIUM/ALBUTEROL 0.5-3(2.5)MG/3ML NEB HHN SCH (16:03)
[2024-03-08 16:10] LABS: PLATELET ESTIMATE INCREASED
[2024-03-09] VITALS (71 sets, daily range): BP systolic 85–156; BP diastolic 55–75; PULSE 73–120; RESP 1–24; TEMP 36.3918–37.503; O2SAT 84–100
[2024-03-09 05:54] LABS: CHLORIDE 100 mEq/L (98-107); HEMATOCRIT. 29.8 % (42.0-52.0); HEMOGLOBIN. 9.5 g/dL (14.0-18.0); MEAN CORPUSCULAR HEMOGLOBIN 28.4 pg (28.0-32.0); MEAN CORPUSCULAR HGB CONC 31.9 g/dL (31.0-37.0); PLATELET 466 x1000/uL (130-400); POTASSIUM 4.2 mEq/L (3.5-5.1); RED BLOOD CELL COUNT 3.35 mill/uL (4.7-6.1); SODIUM 140 mEq/L (136-145); WHITE BLOOD COUNT 18.8 x1000/uL (4.5-11.0)
[2024-03-09 05:55] LABS: CALCIUM 10.5 mg/dL (8.7-10.4); CARBON DIOXIDE 23 mEq/L (21-32)
[2024-03-09 06:00] LABS: GLUCOSE 298 mg/dL (70-105); TRIGLYCERIDE 142 mg/dL (0-150)
[2024-03-09 06:02] LABS: ALANINE AMINOTRANSFERASE 13 IU/L (10-49); ALBUMIN 3.9 g/dL (3.2-4.8); ASPARTATE AMINOTRANSFERASE 38 IU/L (<34)
[2024-03-09 06:03] LABS: BILIRUBIN TOTAL < 0.2 mg/dL (0.1-1.0); PROTEIN TOTAL 7.4 g/dL (6.0-8.3)
[2024-03-09 06:07] LABS: UREA NITROGEN BLOOD 102 mg/dL (9-23)
[2024-03-09 06:08] LABS: DIFFERENTIAL COMMENT 1
[2024-03-09 12:10] LABS: BG BASE EXCESS -2.2 mmol/L (-2.0-2.0); BG CARBOXYHEMOGLOBIN 0.2 % (0.5-1.5); BG DEOXYHEMOGLOBIN 3.4 % (0.0-5.0); BG FRACTION INSPIRED OXYGEN 40; BG HCO3 ACT 22.6 mmol/L (22.0-26.0); BG METHEMOGLOBIN 0.3 % (0.0-1.5); BG OXYGEN SATURATION 96.6 % (92.0-98.5); BG OXYHEMOGLOBIN 96.1 % (94.0-97.0); BG PCO2 38.8 mmHg (35.0-45.0); BG PH 7.383 (7.350-7.450); BG PO2 89.3 mmHg (75.0-100.0); BG SAMPLE SITE RIGHT RADIAL; BG TOTAL HEMOGLOBIN 11.7 g/dL (12.0-18.0); BG VENT MODE VENT - AC
[2024-03-09] MEDS: VANCOMYCIN 500MG/100ML IV NR (17:28)
[2024-03-09] MEDS: PROPOFOL 10MG/ML 100ML 100 ML IV SCH (21:45)
[2024-03-10] VITALS (74 sets, daily range): BP systolic 107–164; BP diastolic 52–113; PULSE 72–102; RESP 12–24; TEMP 36.22512–37.44744; O2SAT 97–100
[2024-03-10 01:09] LABS: PLATELET ESTIMATE INCREASED
[2024-03-10 06:12] LABS: BASOPHILS % 0.3 % (0.0-2.0); EOSINOPHILS % 1.1 % (0.0-5.0); HEMATOCRIT. 26.6 % (42.0-52.0); HEMOGLOBIN. 8.6 g/dL (14.0-18.0); LYMPHOCYTES % 8.7 % (20.0-50.0); MEAN CORPUSCULAR HEMOGLOBIN 28.4 pg (28.0-32.0); MEAN CORPUSCULAR HGB CONC 32.3 g/dL (31.0-37.0); MEAN PLATELET VOLUME 7.9 fl (7.4-10.4); MONOCYTES % 13.3 % (2.0-8.0); NEUTROPHILS % 76.6 % (40.0-76.0); PLATELET 425 x1000/uL (130-400); RED BLOOD CELL COUNT 3.02 mill/uL (4.7-6.1); RED CELL DISTRIBUTION WIDTH 15.1 % (11.6-14.6); WHITE BLOOD COUNT 14.3 x1000/uL (4.5-11.0)
[2024-03-10 08:04] LABS: POTASSIUM 4.5 mEq/L (3.5-5.1)
[2024-03-10 08:06] LABS: CALCIUM 9.9 mg/dL (8.7-10.4)
[2024-03-10 08:15] LABS: CREATININE 13.7 mg/dL (0.6-1.3)
[2024-03-10 13:00] LABS: BG BASE EXCESS -3.3 mmol/L (-2.0-2.0); BG CARBOXYHEMOGLOBIN 0.3 % (0.5-1.5); BG DEOXYHEMOGLOBIN 1.6 % (0.0-5.0); BG HCO3 ACT 20.7 mmol/L (22.0-26.0); BG METHEMOGLOBIN 0.3 % (0.0-1.5); BG OXYGEN SATURATION 98.4 % (92.0-98.5); BG OXYHEMOGLOBIN 97.8 % (94.0-97.0); BG PCO2 33.5 mmHg (35.0-45.0); BG PH 7.409 (7.350-7.450); BG PO2 113.9 mmHg (75.0-100.0); BG SAMPLE SITE RIGHT BRACHIAL; BG TOTAL HEMOGLOBIN 10.6 g/dL (12.0-18.0); BG VENT MODE VENT - AC
[2024-03-10] MEDS: INSULIN LISPRO 100 UNITS/ML SUBCUT NR (17:41)
[2024-03-10] MEDS: CEFEPIME 1GM/50ML 50 ML IV SCH (21:15)
[2024-03-11] VITALS (48 sets, daily range): BP systolic 121–166; BP diastolic 51–72; PULSE 65–100; RESP 10–19; TEMP 36.3918–37.44744; O2SAT 98–100
[2024-03-11] MEDS ORDERED: DEXMEDETOMIDINE 400 MCG/100 ML 100 ML IV PRN (05:30)
[2024-03-11 06:04] LABS: BASOPHILS % 0.3 % (0.0-2.0); EOSINOPHILS % 0.6 % (0.0-5.0); HEMATOCRIT. 27.9 % (42.0-52.0); HEMOGLOBIN. 8.8 g/dL (14.0-18.0); LYMPHOCYTES % 8.4 % (20.0-50.0); MEAN CORPUSCULAR HEMOGLOBIN 27.8 pg (28.0-32.0); MEAN CORPUSCULAR HGB CONC 31.4 g/dL (31.0-37.0); MEAN CORPUSCULAR VOLUME 88.5 fL (80.0-94.0); MEAN PLATELET VOLUME 7.8 fl (7.4-10.4); NEUTROPHILS % 77.7 % (40.0-76.0); PLATELET 440 x1000/uL (130-400); RED BLOOD CELL COUNT 3.15 mill/uL (4.7-6.1); RED CELL DISTRIBUTION WIDTH 15.1 % (11.6-14.6); WHITE BLOOD COUNT 13.4 x1000/uL (4.5-11.0)
[2024-03-11 06:15] LABS: POTASSIUM 4.6 mEq/L (3.5-5.1)
[2024-03-11 06:16] LABS: CALCIUM 9.7 mg/dL (8.7-10.4)
[2024-03-11 07:07] LABS: CREATININE 11.3 mg/dL (0.6-1.3)
[2024-03-11] MEDS: INSULIN LISPRO 100 UNITS/ML SUBCUT NR (13:29)
[2024-03-11] MEDS ORDERED: CEFEPIME 1GM IN DEXT 5% 50ML IV SCH (21:00)
[2024-03-11] MEDS: INSULIN GLARGINE 100 UNITS/ML SUBCUT SCH (21:24)
[2024-03-12] VITALS (36 sets, daily range): BP systolic 113–157; BP diastolic 47–70; PULSE 66–90; RESP 10–18; TEMP 36.83628–37.28076; O2SAT 99–100
[2024-03-12 06:01] LABS: POTASSIUM 4.7 mEq/L (3.5-5.1)
[2024-03-12 06:03] LABS: CALCIUM 9.4 mg/dL (8.7-10.4)
[2024-03-12 07:21] LABS: BASOPHILS % 0.4 % (0.0-2.0); EOSINOPHILS % 0.9 % (0.0-5.0); HEMOGLOBIN. 8.3 g/dL (14.0-18.0); LYMPHOCYTES % 9.1 % (20.0-50.0); MEAN CORPUSCULAR HEMOGLOBIN 27.6 pg (28.0-32.0); MEAN CORPUSCULAR HGB CONC 30.9 g/dL (31.0-37.0); MEAN CORPUSCULAR VOLUME 89.2 fL (80.0-94.0); MEAN PLATELET VOLUME 7.9 fl (7.4-10.4); MONOCYTES % 10.3 % (2.0-8.0); NEUTROPHILS % 79.3 % (40.0-76.0); PLATELET 387 x1000/uL (130-400); RED BLOOD CELL COUNT 3.03 mill/uL (4.7-6.1); RED CELL DISTRIBUTION WIDTH 15.1 % (11.6-14.6); WHITE BLOOD COUNT 12.8 x1000/uL (4.5-11.0)
[2024-03-12] MEDS: NYSTATIN 100,000 UNITS/ML 5ML UDC PO SCH (12:59)
[2024-03-12 14:24] LABS: BG BASE EXCESS -5.4 mmol/L (-2.0-2.0); BG DEOXYHEMOGLOBIN 0.9 % (0.0-5.0); BG FRACTION INSPIRED OXYGEN 35; BG HCO3 ACT 19.7 mmol/L (22.0-26.0); BG METHEMOGLOBIN 0.3 % (0.0-1.5); BG OXYGEN SATURATION 99.1 % (92.0-98.5); BG OXYHEMOGLOBIN 98.8 % (94.0-97.0); BG PCO2 36.5 mmHg (35.0-45.0); BG PH 7.349 (7.350-7.450); BG SAMPLE SITE RIGHT RADIAL; BG TOTAL HEMOGLOBIN 9.3 g/dL (12.0-18.0); BG VENT MODE VENT - CPAP
[2024-03-12] MEDS: INSULIN GLARGINE 100 UNITS/ML SUBCUT NR (16:39)
[2024-03-12] MEDS: INSULIN LISPRO 100 UNITS/ML SUBCUT NR (16:39)
[2024-03-12] MEDS: INSULIN GLARGINE 100 UNITS/ML SUBCUT SCH (23:11)
[2024-03-13] VITALS (61 sets, daily range): BP systolic 79–159; BP diastolic 47–70; PULSE 61–100; RESP 10–22; TEMP 36.55848–37.2252; O2SAT 98–100
[2024-03-13 05:44] LABS: POTASSIUM 4.8 mEq/L (3.5-5.1)
[2024-03-13 05:45] LABS: CALCIUM 9.8 mg/dL (8.7-10.4)
[2024-03-13 05:46] LABS: HEMATOCRIT. 26.4 % (42.0-52.0); HEMOGLOBIN. 8.3 g/dL (14.0-18.0); MEAN CORPUSCULAR HEMOGLOBIN 27.6 pg (28.0-32.0); MEAN CORPUSCULAR HGB CONC 31.3 g/dL (31.0-37.0); MEAN CORPUSCULAR VOLUME 88.2 fL (80.0-94.0); MEAN PLATELET VOLUME 8.2 fl (7.4-10.4); PLATELET 367 x1000/uL (130-400); RED BLOOD CELL COUNT 2.99 mill/uL (4.7-6.1); RED CELL DISTRIBUTION WIDTH 15.5 % (11.6-14.6); WHITE BLOOD COUNT 15.6 x1000/uL (4.5-11.0)
[2024-03-13 06:00] LABS: DIFFERENTIAL COMMENT 1
[2024-03-13 09:04] LABS: BG BASE EXCESS -6.3 mmol/L (-2.0-2.0); BG CARBOXYHEMOGLOBIN 0.1 % (0.5-1.5); BG FRACTION INSPIRED OXYGEN 35; BG HCO3 ACT 19.2 mmol/L (22.0-26.0); BG METHEMOGLOBIN 0.3 % (0.0-1.5); BG OXYHEMOGLOBIN 98.6 % (94.0-97.0); BG PCO2 38.1 mmHg (35.0-45.0); BG PH 7.321 (7.350-7.450); BG PO2 148.2 mmHg (75.0-100.0); BG SAMPLE SITE RIGHT RADIAL; BG VENT MODE VENT - SIMV
[2024-03-13] MEDS: BLOOD SUGAR DIAGNOSTIC STRIP TEST SCH (12:01)
[2024-03-13] MEDS: INSULIN LISPRO 100 UNITS/ML SUBCUT SCH (12:16)
[2024-03-13 15:10] LABS: ANISOCYTOSIS 1+; PLATELET ESTIMATE NORMAL
[2024-03-13] MEDS: VANCOMYCIN 500MG/100ML IV NR (16:51)
[2024-03-13 19:06] LABS: ALBUMIN 3.4 g/dL (3.2-4.8); PREALBUMIN 11.9 mg/dl (10.0-40.0)
[2024-03-14] VITALS (85 sets, daily range): BP systolic 101–156; BP diastolic 41–60; PULSE 65–79; RESP 8–21; TEMP 36.78072–37.05852; O2SAT 95–100
[2024-03-14 05:27] LABS: CALCIUM 9.7 mg/dL (8.7-10.4); HEMATOCRIT. 27.1 % (42.0-52.0); HEMOGLOBIN. 8.4 g/dL (14.0-18.0); MEAN CORPUSCULAR HEMOGLOBIN 27.6 pg (28.0-32.0); MEAN CORPUSCULAR VOLUME 88.9 fL (80.0-94.0); PLATELET 335 x1000/uL (130-400); POTASSIUM 4.3 mEq/L (3.5-5.1); RED BLOOD CELL COUNT 3.04 mill/uL (4.7-6.1); RED CELL DISTRIBUTION WIDTH 15.7 % (11.6-14.6); WHITE BLOOD COUNT 15.5 x1000/uL (4.5-11.0)
[2024-03-14 05:44] LABS: CREATININE 10.5 mg/dL (0.6-1.3)
[2024-03-14 06:33] LABS: DIFFERENTIAL COMMENT 1
[2024-03-14 10:17] LABS: BG BASE EXCESS -6.4 mmol/L (-2.0-2.0); BG CARBOXYHEMOGLOBIN 0.5 % (0.5-1.5); BG DEOXYHEMOGLOBIN 1.5 % (0.0-5.0); BG FRACTION INSPIRED OXYGEN 35; BG METHEMOGLOBIN 0.3 % (0.0-1.5); BG OXYGEN SATURATION 98.5 % (92.0-98.5); BG OXYHEMOGLOBIN 97.7 % (94.0-97.0); BG PCO2 32.3 mmHg (35.0-45.0); BG PH 7.365 (7.350-7.450); BG PO2 111.5 mmHg (75.0-100.0); BG SAMPLE SITE RIGHT RADIAL; BG TOTAL HEMOGLOBIN 11.7 g/dL (12.0-18.0); BG VENT MODE VENT - SIMV
[2024-03-14 10:34] LABS: ANISOCYTOSIS 1+; PLATELET ESTIMATE NORMAL
[2024-03-14 15:17] LABS: BG BASE EXCESS -5.7 mmol/L (-2.0-2.0); BG CARBOXYHEMOGLOBIN 0.8 % (0.5-1.5); BG DEOXYHEMOGLOBIN 0.8 % (0.0-5.0); BG FRACTION INSPIRED OXYGEN 35; BG HCO3 ACT 18.9 mmol/L (22.0-26.0); BG METHEMOGLOBIN 0.3 % (0.0-1.5); BG OXYGEN SATURATION 99.2 % (92.0-98.5); BG OXYHEMOGLOBIN 98.1 % (94.0-97.0); BG PCO2 33.2 mmHg (35.0-45.0); BG PH 7.373 (7.350-7.450); BG PO2 140.2 mmHg (75.0-100.0); BG SAMPLE SITE RIGHT RADIAL; BG TOTAL HEMOGLOBIN 8.6 g/dL (12.0-18.0); BG VENT MODE VENT - CPAP
[2024-03-15] VITALS (70 sets, daily range): BP systolic 45–143; BP diastolic 31–67; PULSE 66–100; RESP 9–21; TEMP 36.3918–37.11408; O2SAT 90–100
[2024-03-15 08:51] LABS: POTASSIUM 4.5 mEq/L (3.5-5.1)
[2024-03-15 08:52] LABS: CALCIUM 9.3 mg/dL (8.7-10.4); HEMATOCRIT 26.1 % (42.0-52.0); HEMOGLOBIN 8.1 g/dL (14.0-18.0); MEAN CORPUSCULAR HEMOGLOBIN 27.2 pg (28.0-32.0); PLATELET 361 x1000/uL (130-400); RED BLOOD CELL COUNT 2.97 mill/uL (4.7-6.1); RED CELL DISTRIBUTION WIDTH 15.2 % (11.6-14.6); WHITE BLOOD COUNT 11.7 x1000/uL (4.5-11.0)
[2024-03-15 08:57] LABS: CREATININE 11.9 mg/dL (0.6-1.3)
[2024-03-15] MEDS: VANCOMYCIN 500MG/100ML IV NR (17:02)
[2024-03-15] MEDS ORDERED: VASOPRESSIN 20 UNIT in SODIUM CHLORIDE 0.9% 99 ML IV PRN (18:45)
[2024-03-15 20:47] LABS: HEMATOCRIT. 25.1 % (42.0-52.0); MEAN CORPUSCULAR HEMOGLOBIN 27.7 pg (28.0-32.0); MEAN CORPUSCULAR HGB CONC 31.9 g/dL (31.0-37.0); MEAN CORPUSCULAR VOLUME 86.7 fL (80.0-94.0); MEAN PLATELET VOLUME 7.7 fl (7.4-10.4); PLATELET 375 x1000/uL (130-400); RED CELL DISTRIBUTION WIDTH 15.3 % (11.6-14.6); WHITE BLOOD COUNT 12.4 x1000/uL (4.5-11.0)
[2024-03-15 20:53] LABS: DIFFERENTIAL COMMENT 1
[2024-03-15 21:19] LABS: PLATELET ESTIMATE NORMAL
[2024-03-16] VITALS (72 sets, daily range): BP systolic 97–172; BP diastolic 44–74; PULSE 67–99; RESP 8–22; TEMP 36.3918–36.89184; O2SAT 96–100
[2024-03-17] VITALS (87 sets, daily range): BP systolic 118–162; BP diastolic 45–65; PULSE 60–82; RESP 8–19; TEMP 36.22512–36.89184; O2SAT 99–100
[2024-03-17 13:35] LABS: BG BASE EXCESS -2.6 mmol/L (-2.0-2.0); BG CARBOXYHEMOGLOBIN 0.4 % (0.5-1.5); BG DEOXYHEMOGLOBIN 1.5 % (0.0-5.0); BG FRACTION INSPIRED OXYGEN 55; BG HCO3 ACT 21.8 mmol/L (22.0-26.0); BG METHEMOGLOBIN 0.1 % (0.0-1.5); BG OXYGEN SATURATION 98.5 % (92.0-98.5); BG PCO2 35.9 mmHg (35.0-45.0); BG PH 7.401 (7.350-7.450); BG PO2 114.8 mmHg (75.0-100.0); BG SAMPLE SITE RIGHT RADIAL; BG TOTAL HEMOGLOBIN 8.7 g/dL (12.0-18.0); BG VENT MODE VENT - SIMV
[2024-03-17 15:51] LABS: HEMATOCRIT 26.8 % (42.0-52.0); HEMOGLOBIN 8.5 g/dL (14.0-18.0); MEAN CORPUSCULAR HEMOGLOBIN 27.5 pg (28.0-32.0); MEAN CORPUSCULAR HGB CONC 31.6 g/dL (31.0-37.0); MEAN CORPUSCULAR VOLUME 87.1 fL (80.0-94.0); PLATELET 401 x1000/uL (130-400); RED BLOOD CELL COUNT 3.08 mill/uL (4.7-6.1); RED CELL DISTRIBUTION WIDTH 15.4 % (11.6-14.6); WHITE BLOOD COUNT 12.8 x1000/uL (4.5-11.0)
[2024-03-17 16:00] LABS: POTASSIUM 4.7 mEq/L (3.5-5.1)
[2024-03-17 16:01] LABS: CALCIUM 9.3 mg/dL (8.7-10.4)
[2024-03-17] MEDS: CHLORHEXIDINE GLUCONATE 4% EXTERNAL USE TOP SCH (17:53)
[2024-03-18] VITALS (79 sets, daily range): BP systolic 69–160; BP diastolic 30–74; PULSE 66–109; RESP 10–25; TEMP 36.44736–37.2252; O2SAT 98–100
[2024-03-18 06:29] LABS: POTASSIUM 4.1 mEq/L (3.5-5.1)
[2024-03-18 06:31] LABS: CALCIUM 9.9 mg/dL (8.7-10.4)
[2024-03-18 06:34] LABS: HEMATOCRIT. 24.8 % (42.0-52.0); MEAN CORPUSCULAR HEMOGLOBIN 27.9 pg (28.0-32.0); MEAN CORPUSCULAR HGB CONC 32.3 g/dL (31.0-37.0); MEAN CORPUSCULAR VOLUME 86.2 fL (80.0-94.0); MEAN PLATELET VOLUME 8.2 fl (7.4-10.4); PLATELET 455 x1000/uL (130-400); RED BLOOD CELL COUNT 2.87 mill/uL (4.7-6.1); RED CELL DISTRIBUTION WIDTH 15.1 % (11.6-14.6); WHITE BLOOD COUNT 12.3 x1000/uL (4.5-11.0)
[2024-03-18 07:03] LABS: CREATININE 9.2 mg/dL (0.6-1.3)
[2024-03-18 07:42] LABS: DIFFERENTIAL COMMENT 1
[2024-03-18 12:12] LABS: ANISOCYTOSIS 1+; PLATELET ESTIMATE INCREASED
[2024-03-18] MEDS: VANCOMYCIN 500MG/100ML IV NR (18:04)
[2024-03-19] VITALS (71 sets, daily range): BP systolic 101–170; BP diastolic 48–75; PULSE 57–82; RESP 9–27; TEMP 36.3918–37.39188; O2SAT 97–100
[2024-03-19 05:36] LABS: BASOPHILS % 0.4 % (0.0-2.0); EOSINOPHILS % 1.4 % (0.0-5.0); HEMATOCRIT. 26.9 % (42.0-52.0); HEMOGLOBIN. 8.4 g/dL (14.0-18.0); LYMPHOCYTES % 7.3 % (20.0-50.0); MEAN CORPUSCULAR HEMOGLOBIN 27.4 pg (28.0-32.0); MEAN CORPUSCULAR HGB CONC 31.1 g/dL (31.0-37.0); MEAN CORPUSCULAR VOLUME 88.2 fL (80.0-94.0); MONOCYTES % 10.1 % (2.0-8.0); NEUTROPHILS % 80.8 % (40.0-76.0); POTASSIUM 4.4 mEq/L (3.5-5.1); RED BLOOD CELL COUNT 3.05 mill/uL (4.7-6.1); RED CELL DISTRIBUTION WIDTH 15.5 % (11.6-14.6)
[2024-03-19 05:38] LABS: CALCIUM 9.4 mg/dL (8.7-10.4)
[2024-03-19 05:48] LABS: CREATININE 8.9 mg/dL (0.6-1.3)
[2024-03-19 06:44] LABS: DIFFERENTIAL COMMENT 1
[2024-03-19 14:22] LABS: PLATELET 467 x1000/uL (130-400)
[2024-03-19 17:58] LABS: PHOSPHORUS 6.2 mg/dL (2.5-4.9)
[2024-03-19 18:07] LABS: TROPONIN I HIGH SENSITIVITY 135 ng/L (3.0-53)
[2024-03-20] VITALS (92 sets, daily range): BP systolic 94–165; BP diastolic 37–64; PULSE 63–90; RESP 8–20; TEMP 37.00296–37.05852; O2SAT 92–100
[2024-03-20 05:22] LABS: POTASSIUM 4.7 mEq/L (3.5-5.1)
[2024-03-20 05:23] LABS: CALCIUM 9.8 mg/dL (8.7-10.4)
[2024-03-20 06:19] LABS: CREATININE 9.5 mg/dL (0.6-1.3)
[2024-03-20] MEDS: LIDOCAINE HCL 1% 10 MG/ML 10ML VIAL ONE (07:23)
[2024-03-20] MEDS: SODIUM HYPOCHLORITE 0.125% 473ML SOLUTION TOP SCH (12:32)
[2024-03-21] VITALS (101 sets, daily range): BP systolic 61–170; BP diastolic 39–96; PULSE 68–118; RESP 10–25; TEMP 36.44736–37.00296; O2SAT 88–100
[2024-03-21] MEDS: NOREPINEPHRINE 32 MG in DEXT 5% WATER 218 ML IV PRN (01:16)
[2024-03-21 06:10] LABS: BASOPHILS % 0.6 % (0.0-2.0); EOSINOPHILS % 1.5 % (0.0-5.0); HEMATOCRIT. 25.1 % (42.0-52.0); MEAN CORPUSCULAR HEMOGLOBIN 27.5 pg (28.0-32.0); MEAN CORPUSCULAR HGB CONC 31.8 g/dL (31.0-37.0); MEAN CORPUSCULAR VOLUME 86.7 fL (80.0-94.0); MONOCYTES % 10.1 % (2.0-8.0); NEUTROPHILS % 79.8 % (40.0-76.0); PLATELET 530 x1000/uL (130-400); RED BLOOD CELL COUNT 2.89 mill/uL (4.7-6.1); RED CELL DISTRIBUTION WIDTH 15.2 % (11.6-14.6)
[2024-03-21 06:11] LABS: POTASSIUM 4.2 mEq/L (3.5-5.1)
[2024-03-21 06:12] LABS: CALCIUM 9.4 mg/dL (8.7-10.4)
[2024-03-21 06:18] LABS: CREATININE 10.9 mg/dL (0.6-1.3)
[2024-03-21] MEDS ORDERED: LIDOCAINE HCL/EPINEPHRINE 1%-EPI 1:100,000 20 ML VIAL ONE (09:56)
[2024-03-21 10:17] LABS: INR 1.1; PROTHROMBIN TIME 12.4 sec (9.6-11.0)
[2024-03-21] MEDS ORDERED: ROCURONIUM BROMIDE 10MG/ML VIAL 5ML IV ONE (12:37)
[2024-03-21] MEDS ORDERED: MIDAZOLAM 100MG/100ML PMX 100 ML IV PRN (13:45)
[2024-03-21 15:59] LABS: BG BASE EXCESS -11.7 mmol/L (-2.0-2.0); BG DEOXYHEMOGLOBIN 0.6 % (0.0-5.0); BG FRACTION INSPIRED OXYGEN 100; BG HCO3 ACT 17.8 mmol/L (22.0-26.0); BG METHEMOGLOBIN 0.1 % (0.0-1.5); BG OXYGEN SATURATION 99.4 % (92.0-98.5); BG OXYHEMOGLOBIN 99.3 % (94.0-97.0); BG PCO2 58.3 mmHg (35.0-45.0); BG PH 7.102 (7.350-7.450); BG PO2 219.9 mmHg (75.0-100.0); BG SAMPLE SITE RIGHT RADIAL; BG TOTAL HEMOGLOBIN 10.3 g/dL (12.0-18.0); BG VENT MODE VENT - SIMV/VC
[2024-03-21] MEDS: PHENYLEPHRINE 50MG/250ML PMX 250 ML IV PRN (19:00)
[2024-03-21] MEDS: VANCOMYCIN 500MG PREMIX 100 ML IV SCH (22:40)
[2024-03-21] MEDS: PHENYLEPHRINE 100 MG in DEXT 5% WATER 240 ML IV PRN (22:50)
[2024-03-22] VITALS (109 sets, daily range): BP systolic 86–146; BP diastolic 43–65; PULSE 74–98; RESP 9–21; TEMP 36.44736–36.83628; O2SAT 97–100
[2024-03-22 13:28] LABS: MEAN CORPUSCULAR HEMOGLOBIN 27.2 pg (28.0-32.0); MEAN CORPUSCULAR HGB CONC 31.8 g/dL (31.0-37.0); MEAN CORPUSCULAR VOLUME 85.4 fL (80.0-94.0); MEAN PLATELET VOLUME 7.5 fl (7.4-10.4); PLATELET 428 x1000/uL (130-400); RED BLOOD CELL COUNT 2.38 mill/uL (4.7-6.1); RED CELL DISTRIBUTION WIDTH 15.4 % (11.6-14.6); WHITE BLOOD COUNT 12.2 x1000/uL (4.5-11.0)
[2024-03-22 13:39] LABS: POTASSIUM 4.6 mEq/L (3.5-5.1)
[2024-03-22 13:40] LABS: CALCIUM 8.8 mg/dL (8.7-10.4)
[2024-03-22 13:45] LABS: DIFFERENTIAL COMMENT 1; HEMATOCRIT. 20.3 % (42.0-52.0); HEMOGLOBIN. 6.5 g/dL (14.0-18.0)
[2024-03-22 13:47] LABS: CREATININE 12.2 mg/dL (0.6-1.3)
[2024-03-22 16:44] LABS: PLATELET ESTIMATE INCREASED
[2024-03-22 16:45] LABS: ANISOCYTOSIS 1+
[2024-03-22] MEDS: DEXAMETHASONE 4MG/ML 1ML VIAL IV SCH (17:37)
[2024-03-22] MEDS: CEFEPIME 1GM/50ML 50 ML IV SCH (21:23)
[2024-03-22] MEDS ORDERED: CEFEPIME 1GM IN DEXT 5% 50ML IV SCH (22:00)
[2024-03-22 22:03] LABS: HEMATOCRIT 22.7 % (42.0-52.0); HEMOGLOBIN 7.3 g/dL (14.0-18.0)
[2024-03-23] VITALS (96 sets, daily range): BP systolic 99–161; BP diastolic 43–90; PULSE 68–89; RESP 9–24; TEMP 36.72516–36.9474; O2SAT 92–100
[2024-03-23 05:36] LABS: POTASSIUM 5.3 mEq/L (3.5-5.1)
[2024-03-23 05:38] LABS: CALCIUM 9.5 mg/dL (8.7-10.4)
[2024-03-23 05:45] LABS: HEMATOCRIT 23.3 % (42.0-52.0); HEMATOCRIT. 23.3 % (42.0-52.0); HEMOGLOBIN 7.5 g/dL (14.0-18.0); HEMOGLOBIN. 7.5 g/dL (14.0-18.0); MEAN CORPUSCULAR HEMOGLOBIN 27.9 pg (28.0-32.0); MEAN CORPUSCULAR HGB CONC 32.4 g/dL (31.0-37.0); MEAN CORPUSCULAR VOLUME 86.2 fL (80.0-94.0); PLATELET 452 x1000/uL (130-400); RED CELL DISTRIBUTION WIDTH 15.5 % (11.6-14.6); WHITE BLOOD COUNT 14.6 x1000/uL (4.5-11.0)
[2024-03-23 06:57] LABS: DIFFERENTIAL COMMENT 1
[2024-03-23] MEDS: LIDOCAINE HCL 1% 10 MG/ML 10ML VIAL ONE (08:49)
[2024-03-23] MEDS: HEPARIN 1000 UNITS/ML 10ML ONE (08:50)
[2024-03-23] MEDS: MEROPENEM 1G/100ML 100 ML IV SCH (16:05)
[2024-03-23 17:04] LABS: ANISOCYTOSIS 1+; PLATELET ESTIMATE INCREASED
[2024-03-24] VITALS (89 sets, daily range): BP systolic 106–178; BP diastolic 45–74; PULSE 57–84; RESP 11–22; TEMP 36.6696–36.78072; O2SAT 94–100
[2024-03-24 05:46] LABS: CALCIUM 9.7 mg/dL (8.7-10.4)
[2024-03-24 06:09] LABS: HEMATOCRIT. 22.5 % (42.0-52.0); HEMOGLOBIN. 7.3 g/dL (14.0-18.0); MEAN CORPUSCULAR HGB CONC 32.4 g/dL (31.0-37.0); MEAN CORPUSCULAR VOLUME 86.2 fL (80.0-94.0); MEAN PLATELET VOLUME 8.1 fl (7.4-10.4); PLATELET 482 x1000/uL (130-400); RED BLOOD CELL COUNT 2.61 mill/uL (4.7-6.1); RED CELL DISTRIBUTION WIDTH 15.5 % (11.6-14.6); WHITE BLOOD COUNT 14.3 x1000/uL (4.5-11.0)
[2024-03-24 06:15] LABS: DIFFERENTIAL COMMENT 1
[2024-03-24 06:25] LABS: CREATININE 12.8 mg/dL (0.6-1.3)
[2024-03-24] MEDS: CLONIDINE 0.1MG TABLET PO PRN (06:36)
[2024-03-24 09:45] LABS: NUCLEATED RED BLOOD CELLS 1 /100 WBC; PLATELET ESTIMATE INCREASED; ROULEAUX 1+
[2024-03-24] MEDS: VANCOMYCIN 500MG PREMIX 100 ML IV SCH (21:32)
[2024-03-25] VITALS (63 sets, daily range): BP systolic 123–175; BP diastolic 43–68; PULSE 64–99; RESP 9–18; TEMP 36.33624–36.9474; O2SAT 94–100
[2024-03-25 06:00] LABS: HEMATOCRIT 24.4 % (42.0-52.0); HEMATOCRIT. 24.4 % (42.0-52.0); MEAN CORPUSCULAR HGB CONC 32.6 g/dL (31.0-37.0); MEAN CORPUSCULAR VOLUME 85.9 fL (80.0-94.0); MEAN PLATELET VOLUME 7.9 fl (7.4-10.4); PLATELET 521 x1000/uL (130-400); RED BLOOD CELL COUNT 2.84 mill/uL (4.7-6.1); RED CELL DISTRIBUTION WIDTH 15.4 % (11.6-14.6); WHITE BLOOD COUNT 13.9 x1000/uL (4.5-11.0)
[2024-03-25 06:07] LABS: DIFFERENTIAL COMMENT 1
[2024-03-25 06:09] LABS: POTASSIUM 4.5 mEq/L (3.5-5.1)
[2024-03-25 06:10] LABS: CALCIUM 9.7 mg/dL (8.7-10.4)
[2024-03-25 06:35] LABS: CREATININE 10.5 mg/dL (0.6-1.3)
[2024-03-25 07:11] LABS: ANISOCYTOSIS 1+; PLATELET ESTIMATE INCREASED
[2024-03-25 08:53] LABS: BG BASE EXCESS -6.3 mmol/L (-2.0-2.0); BG CARBOXYHEMOGLOBIN 0.6 % (0.5-1.5); BG DEOXYHEMOGLOBIN 0.8 % (0.0-5.0); BG FRACTION INSPIRED OXYGEN 35; BG HCO3 ACT 18.6 mmol/L (22.0-26.0); BG METHEMOGLOBIN 0.3 % (0.0-1.5); BG OXYGEN SATURATION 99.2 % (92.0-98.5); BG OXYHEMOGLOBIN 98.3 % (94.0-97.0); BG PCO2 34.3 mmHg (35.0-45.0); BG PH 7.352 (7.350-7.450); BG PO2 146.9 mmHg (75.0-100.0); BG SAMPLE SITE RIGHT RADIAL; BG TOTAL HEMOGLOBIN 7.5 g/dL (12.0-18.0); BG VENT MODE VENT - SIMV
[2024-03-26] VITALS (26 sets, daily range): BP systolic 143–189; BP diastolic 54–75; PULSE 69–95; RESP 10–20; TEMP 36.83628–36.89184; O2SAT 92–100
[2024-03-26 03:39] LABS: HEMATOCRIT. 24.5 % (42.0-52.0); MEAN CORPUSCULAR HEMOGLOBIN 27.9 pg (28.0-32.0); MEAN CORPUSCULAR HGB CONC 32.6 g/dL (31.0-37.0); MEAN CORPUSCULAR VOLUME 85.6 fL (80.0-94.0); MEAN PLATELET VOLUME 7.3 fl (7.4-10.4); PLATELET 484 x1000/uL (130-400); RED BLOOD CELL COUNT 2.86 mill/uL (4.7-6.1); RED CELL DISTRIBUTION WIDTH 15.3 % (11.6-14.6); WHITE BLOOD COUNT 12.8 x1000/uL (4.5-11.0)
[2024-03-26 03:44] LABS: DIFFERENTIAL COMMENT 1
[2024-03-26 03:48] LABS: INR 1.1; PROTHROMBIN TIME 11.8 sec (9.6-11.0)
[2024-03-26 04:07] LABS: CHLORIDE 103 mEq/L (98-107); SODIUM 137 mEq/L (136-145)
[2024-03-26 04:08] LABS: CALCIUM 9.3 mg/dL (8.7-10.4); CARBON DIOXIDE 19 mEq/L (21-32)
[2024-03-26 04:13] LABS: GLUCOSE 265 mg/dL (70-105)
[2024-03-26 04:14] LABS: ALANINE AMINOTRANSFERASE 16 IU/L (10-49)
[2024-03-26 04:15] LABS: ALBUMIN 3.3 g/dL (3.2-4.8); ASPARTATE AMINOTRANSFERASE 16 IU/L (<34); BILIRUBIN TOTAL < 0.2 mg/dL (0.1-1.0); PROTEIN TOTAL 6.5 g/dL (6.0-8.3)
[2024-03-26 04:16] LABS: UREA NITROGEN BLOOD 145 mg/dL (9-23)
[2024-03-26 04:17] LABS: CREATININE 11.2 mg/dL (0.6-1.3)
[2024-03-26] MEDS: CEFAZOLIN 1000MG PREMIX 50 ML IV SCH (05:43)
[2024-03-26 10:26] LABS: ANISOCYTOSIS 1+; PLATELET ESTIMATE INCREASED
[2024-03-26] MEDS ORDERED: AMPICILLIN SOD/SULBACTAM NA 9 G in SODIUM CHLORIDE 0.9% 200 ML IV SCH (21:00)
[2024-03-26] MEDS ORDERED: DEXT 5% IV SCH (21:00)
[2024-03-26] MEDS ORDERED: WATER IV SCH (21:00)
[2024-03-26] MEDS ORDERED: POLYMYXIN B SULFATE IV SCH (21:00)
[2024-03-26] MEDS: HYDRALAZINE HCL 50MG TABLET PO SCH (21:42)
[2024-03-26] MEDS: SEVELAMER CARBONATE 800 MG TABLET PO SCH (21:42)
[2024-03-26] MEDS: CARVEDILOL 6.25 MG TABLET PO SCH (21:44)
[2024-03-26] MEDS: AMPICILLIN IV SCH (23:40)
[2024-03-26] MEDS: SULBACTAM IV SCH (23:40)
[2024-03-26] MEDS: POLYMYXIN B SULFATE IV NR (23:40)
[2024-03-26] MEDS: WATER IV NR (23:40)
[2024-03-26] MEDS: SODIUM CHLORIDE 0.9% IV SCH (23:40)
[2024-03-26] MEDS: DEXT 5% IV NR (23:40)
[2024-03-27] VITALS (23 sets, daily range): BP systolic 106–181; BP diastolic 48–76; PULSE 85–121; RESP 9–21; TEMP 36.33624–37.7808; O2SAT 72–99
[2024-03-27 06:20] LABS: POTASSIUM 5.1 mEq/L (3.5-5.1)
[2024-03-27 06:22] LABS: CALCIUM 9.2 mg/dL (8.7-10.4)
[2024-03-27 06:49] LABS: HEMOGLOBIN. 8.2 g/dL (14.0-18.0); MEAN CORPUSCULAR HEMOGLOBIN 27.3 pg (28.0-32.0); MEAN CORPUSCULAR HGB CONC 31.6 g/dL (31.0-37.0); MEAN CORPUSCULAR VOLUME 86.3 fL (80.0-94.0); PLATELET 515 x1000/uL (130-400); RED BLOOD CELL COUNT 3.01 mill/uL (4.7-6.1); RED CELL DISTRIBUTION WIDTH 15.4 % (11.6-14.6); WHITE BLOOD COUNT 20.5 x1000/uL (4.5-11.0)
[2024-03-27 07:00] LABS: DIFFERENTIAL COMMENT 1
[2024-03-27 07:24] LABS: CREATININE 12.8 mg/dL (0.6-1.3)
[2024-03-27] MEDS: POLYMYXIN B SULFATE IV SCH (12:44)
[2024-03-27] MEDS: DEXT 5% IV SCH (12:44)
[2024-03-27] MEDS: WATER IV SCH (12:44)
[2024-03-27 17:23] LABS: ANISOCYTOSIS 1+; PLATELET ESTIMATE INCREASED
[2024-03-27] MEDS: AMPICILLIN/SULBACTAM 3G in SODIUM CHLORIDE 0.9% 100ML IV SCH (22:07)
[2024-03-28] VITALS (23 sets, daily range): BP systolic 141–181; BP diastolic 55–76; PULSE 79–121; RESP 10–19; TEMP 36.33624–36.55848; O2SAT 72–100
[2024-03-28 08:27] LABS: BG BASE EXCESS -6.6 mmol/L (-2.0-2.0); BG CARBOXYHEMOGLOBIN 0.7 % (0.5-1.5); BG DEOXYHEMOGLOBIN 0.6 % (0.0-5.0); BG HCO3 ACT 17.6 mmol/L (22.0-26.0); BG METHEMOGLOBIN 0.3 % (0.0-1.5); BG OXYGEN SATURATION 99.4 % (92.0-98.5); BG OXYHEMOGLOBIN 98.4 % (94.0-97.0); BG PCO2 29.7 mmHg (35.0-45.0); BG SAMPLE SITE RIGHT RADIAL; BG TOTAL HEMOGLOBIN 7.9 g/dL (12.0-18.0)
[2024-03-28 09:35] LABS: BG FRACTION INSPIRED OXYGEN 35; BG PEEP (cmH2O) 5 cmH2O; BG TIDAL VOLUME(mL) 450 mL; BG VENT MODE VENT-SIMV; BG VENT RATE 10 set
[2024-03-28 09:36] LABS: BG PRESSURE SUPPORT 10
[2024-03-28] MEDS: AMLODIPINE 2.5MG TABLET NG SCH (12:36)
[2024-03-28] MEDS: CARVEDILOL 12.5MG TABLET NG NR (17:14)
[2024-03-28] MEDS ORDERED: CARVEDILOL 12.5MG TABLET PO SCH (21:00)
[2024-03-28] MEDS: CARVEDILOL 12.5MG TABLET NG SCH (21:19)
[2024-03-28] MEDS: EPOETIN ALFA-EPBX 10,000 UNIT/ML VIAL SUBCUT SCH (21:19)
[2024-03-29] VITALS (31 sets, daily range): BP systolic 100–168; BP diastolic 45–155; PULSE 63–98; RESP 10–27; TEMP 36.50292–37.2252; O2SAT 86–100
[2024-03-29 06:09] LABS: CARBON DIOXIDE 18 mEq/L (21-32); CHLORIDE 98 mEq/L (98-107); SODIUM 132 mEq/L (136-145)
[2024-03-29 06:50] LABS: PHOSPHORUS 10.5 mg/dL (2.5-4.9)
[2024-03-29 11:08] LABS: BASOPHILS % 0.1 % (0.0-2.0); DIFFERENTIAL COMMENT 0; EOSINOPHILS % 0.2 % (0.0-5.0); LYMPHOCYTES % 7.4 % (20.0-50.0); MEAN CORPUSCULAR HEMOGLOBIN 27.6 pg (28.0-32.0); MEAN CORPUSCULAR HGB CONC 32.3 g/dL (31.0-37.0); MEAN CORPUSCULAR VOLUME 85.6 fL (80.0-94.0); MEAN PLATELET VOLUME 7.9 fl (7.4-10.4); MONOCYTES % 9.4 % (2.0-8.0); NEUTROPHILS % 82.9 % (40.0-76.0); PLATELET 358 x1000/uL (130-400); RED BLOOD CELL COUNT 2.46 mill/uL (4.7-6.1); RED CELL DISTRIBUTION WIDTH 15.3 % (11.6-14.6); WHITE BLOOD COUNT 16.4 x1000/uL (4.5-11.0)
[2024-03-29 11:27] LABS: HEMOGLOBIN. 6.8 g/dL (14.0-18.0)
[2024-03-29] MEDS: ALTEPLASE 2MG/VIAL ITC NR (17:29)
[2024-03-29] MEDS: CALCIUM ACETATE 667MG CAPSULE PO SCH (18:26)
[2024-03-30] VITALS (27 sets, daily range): BP systolic 138–169; BP diastolic 53–62; PULSE 79–91; RESP 7–21; TEMP 36.44736–37.44744; O2SAT 97–100
[2024-03-30] MEDS: DEXTROSE 50% WATER 50ML SYRINGE IV PRN (00:34)
[2024-03-30] MEDS: ONDANSETRON HCL 4MG/2ML INJ IV PRN (00:34)
[2024-03-30] MEDS: DEXT 5%/0.9% NACL 1,000 ML IV SCH (00:34)
[2024-03-30 07:40] LABS: HEMATOCRIT. 22.7 % (42.0-52.0); HEMOGLOBIN. 7.3 g/dL (14.0-18.0); MEAN CORPUSCULAR HEMOGLOBIN 27.6 pg (28.0-32.0); MEAN CORPUSCULAR HGB CONC 32.3 g/dL (31.0-37.0); MEAN CORPUSCULAR VOLUME 85.5 fL (80.0-94.0); PLATELET 325 x1000/uL (130-400); RED BLOOD CELL COUNT 2.66 mill/uL (4.7-6.1); RED CELL DISTRIBUTION WIDTH 14.9 % (11.6-14.6); WHITE BLOOD COUNT 16.2 x1000/uL (4.5-11.0)
[2024-03-30 07:52] LABS: CALCIUM 8.6 mg/dL (8.7-10.4); POTASSIUM 4.9 mEq/L (3.5-5.1)
[2024-03-30 07:53] LABS: INR 1.2; PROTHROMBIN TIME 13.5 sec (9.6-11.0)
[2024-03-30 08:29] LABS: DIFFERENTIAL COMMENT 1
[2024-03-30 09:01] LABS: CREATININE 11.2 mg/dL (0.6-1.3)
[2024-03-30 12:09] LABS: PLATELET ESTIMATE NORMAL
[2024-03-30 12:10] LABS: ANISOCYTOSIS 1+
[2024-03-30] MEDS ORDERED: ACETAMINOPHEN 650MG/20.3ML UDC PO PRN (13:30)
[2024-03-31] VITALS (30 sets, daily range): BP systolic 135–219; BP diastolic 49–73; PULSE 68–98; RESP 10–26; TEMP 36.22512–37.33632; O2SAT 1–100
[2024-03-31 06:10] LABS: POTASSIUM 5.1 mEq/L (3.5-5.1)
[2024-03-31 06:12] LABS: CALCIUM 8.5 mg/dL (8.7-10.4)
[2024-03-31 06:19] LABS: HEMATOCRIT. 26.8 % (42.0-52.0); HEMOGLOBIN. 8.6 g/dL (14.0-18.0); MEAN CORPUSCULAR HEMOGLOBIN 27.5 pg (28.0-32.0); MEAN CORPUSCULAR HGB CONC 32.2 g/dL (31.0-37.0); MEAN CORPUSCULAR VOLUME 85.6 fL (80.0-94.0); MEAN PLATELET VOLUME 8.4 fl (7.4-10.4); PLATELET 327 x1000/uL (130-400); RED BLOOD CELL COUNT 3.13 mill/uL (4.7-6.1); RED CELL DISTRIBUTION WIDTH 16.3 % (11.6-14.6); WHITE BLOOD COUNT 17.3 x1000/uL (4.5-11.0)
[2024-03-31] MEDS: HYDRALAZINE 20MG/ML VIAL IV PRN (06:30)
[2024-03-31 06:41] LABS: DIFFERENTIAL COMMENT 1
[2024-03-31 07:24] LABS: CREATININE 12.3 mg/dL (0.6-1.3)
[2024-03-31] MEDS: DEXAMETHASONE 10 MG/ML VIAL IV SCH (09:52)
[2024-03-31 10:13] LABS: BG BASE EXCESS -8.4 mmol/L (-2.0-2.0); BG CARBOXYHEMOGLOBIN 0.3 % (0.5-1.5); BG DEOXYHEMOGLOBIN 1.4 % (0.0-5.0); BG FRACTION INSPIRED OXYGEN 35; BG HCO3 ACT 15.5 mmol/L (22.0-26.0); BG METHEMOGLOBIN 0.3 % (0.0-1.5); BG OXYGEN SATURATION 98.6 % (92.0-98.5); BG PCO2 27.2 mmHg (35.0-45.0); BG PH 7.375 (7.350-7.450); BG PO2 135.9 mmHg (75.0-100.0); BG SAMPLE SITE RIGHT RADIAL; BG TOTAL HEMOGLOBIN 10.6 g/dL (12.0-18.0); BG VENT MODE VENT - SIMV
[2024-03-31 12:05] LABS: ANISOCYTOSIS 1+; PLATELET ESTIMATE NORMAL
[2024-04-01] VITALS (23 sets, daily range): BP systolic 111–219; BP diastolic 49–83; PULSE 81–102; RESP 13–28; TEMP 36.33624–37.55856; O2SAT 91–100
[2024-04-01 13:00] LABS: HEMATOCRIT. 26.1 % (42.0-52.0); HEMOGLOBIN. 8.6 g/dL (14.0-18.0); MEAN CORPUSCULAR HEMOGLOBIN 27.6 pg (28.0-32.0); MEAN CORPUSCULAR HGB CONC 32.8 g/dL (31.0-37.0); PLATELET 375 x1000/uL (130-400); RED BLOOD CELL COUNT 3.11 mill/uL (4.7-6.1); RED CELL DISTRIBUTION WIDTH 16.4 % (11.6-14.6); WHITE BLOOD COUNT 22.1 x1000/uL (4.5-11.0)
[2024-04-01 13:01] LABS: DIFFERENTIAL COMMENT 1
[2024-04-01 13:04] LABS: POTASSIUM 3.9 mEq/L (3.5-5.1)
[2024-04-01 13:39] LABS: CREATININE 10.2 mg/dL (0.6-1.3)
[2024-04-01 14:29] LABS: BG BASE EXCESS -0.1 mmol/L (-2.0-2.0); BG CARBOXYHEMOGLOBIN 0.3 % (0.5-1.5); BG DEOXYHEMOGLOBIN 0.1 % (0.0-5.0); BG FRACTION INSPIRED OXYGEN 100; BG HCO3 ACT 23.6 mmol/L (22.0-26.0); BG METHEMOGLOBIN 0.3 % (0.0-1.5); BG OXYGEN SATURATION 99.9 % (92.0-98.5); BG OXYHEMOGLOBIN 99.3 % (94.0-97.0); BG PCO2 34.7 mmHg (35.0-45.0); BG PO2 365.6 mmHg (75.0-100.0); BG SAMPLE SITE RIGHT RADIAL; BG TOTAL HEMOGLOBIN 9.5 g/dL (12.0-18.0); BG VENT MODE VENT - AC
[2024-04-01 18:39] LABS: ANISOCYTOSIS 1+; PLATELET ESTIMATE NORMAL
[2024-04-01] MEDS: IPRATROPIUM/ALBUTEROL 0.5-3(2.5)MG/3ML NEB HHN SCH (20:36)
[2024-04-01] MEDS: ACETYLCYSTEINE 200MG/ML 20% VIAL 4ML INH SCH (22:00)
[2024-04-02] VITALS (41 sets, daily range): BP systolic 72–184; BP diastolic 41–69; PULSE 51–91; RESP 10–28; TEMP 36.33624–37.7808; O2SAT 96–100
[2024-04-02] MEDS ORDERED: POLYMYXIN B SULFATE 500000 UNITS/VIAL ONE (10:35)
[2024-04-02] MEDS ORDERED: LIDOCAINE HCL 1% 20ML VIAL ONE (10:36)
[2024-04-02] MEDS ORDERED: BACITRACIN 14GM TUBE TOP ONE (10:36)
[2024-04-02] MEDS ORDERED: BUPIVACAINE HCL/PF 0.5% (5MG/ML) 10ML ONE (10:36)
[2024-04-02] MEDS ORDERED: HEPARIN SODIUM 1,000 UNIT/1ML VIAL IV ONE (10:37)
[2024-04-02] MEDS ORDERED: THROMBIN (BOVINE) 5000 UNITS/VIAL TOP ONE (10:37)
[2024-04-02] MEDS ORDERED: PHENYLEPHRINE 50MG/250ML PMX 250 ML IV ONE (14:57)
[2024-04-02] MEDS ORDERED: NALOXONE HCL 0.4MG/ML VIAL IV PRN (15:30)
[2024-04-02] MEDS ORDERED: ROCURONIUM BROMIDE 10MG/ML VIAL 5ML IV ONE ×2 (15:57→18:34)
[2024-04-02] MEDS ORDERED: HYDROMORPHONE HCL/PF 1MG/ML INJ ONE ×2 (15:57→18:35)
[2024-04-02] MEDS ORDERED: ALBUMIN HUMAN 12.5G/250ML (5%) IV ONE (17:49)
[2024-04-02] MEDS ORDERED: HYDROMORPHONE HCL/PF 2MG/ML INJ IV PRN (19:00)
[2024-04-02] MEDS ORDERED: ATROPINE SULFATE 1MG/10ML SYR IV PRN (19:00)
[2024-04-02 19:50] LABS: HEMATOCRIT 24.8 % (42.0-52.0); HEMOGLOBIN 8.2 g/dL (14.0-18.0); MEAN CORPUSCULAR HEMOGLOBIN 27.9 pg (28.0-32.0); MEAN CORPUSCULAR HGB CONC 33.2 g/dL (31.0-37.0); MEAN CORPUSCULAR VOLUME 84.2 fL (80.0-94.0); PLATELET 285 x1000/uL (130-400); RED BLOOD CELL COUNT 2.95 mill/uL (4.7-6.1); WHITE BLOOD COUNT 15.6 x1000/uL (4.5-11.0)
[2024-04-02 19:56] LABS: CHLORIDE 98 mEq/L (98-107); POTASSIUM 3.8 mEq/L (3.5-5.1); SODIUM 137 mEq/L (136-145)
[2024-04-02 19:57] LABS: CALCIUM 8.6 mg/dL (8.7-10.4); CARBON DIOXIDE 27 mEq/L (21-32)
[2024-04-02] MEDS: PHENYLEPHRINE 50MG/250ML PMX 250 ML IV PRN (20:00)
[2024-04-02 20:02] LABS: GLUCOSE 135 mg/dL (70-105)
[2024-04-02 20:04] LABS: ALANINE AMINOTRANSFERASE < 7 IU/L (10-49); ALBUMIN 2.6 g/dL (3.2-4.8); ASPARTATE AMINOTRANSFERASE 26 IU/L (<34); BILIRUBIN TOTAL 0.3 mg/dL (0.1-1.0); PROTEIN TOTAL 5.1 g/dL (6.0-8.3)
[2024-04-02 20:08] LABS: CREATININE 10.9 mg/dL (0.6-1.3); UREA NITROGEN BLOOD 136 mg/dL (9-23)
[2024-04-02] MEDS: AMLODIPINE 2.5MG TABLET NG SCH (21:00)
[2024-04-03] VITALS (111 sets, daily range): BP systolic 81–166; BP diastolic 45–100; PULSE 58–101; RESP 8–23; TEMP 34.66944–37.16964; O2SAT 95–100
[2024-04-03 06:08] LABS: HEMATOCRIT. 24.2 % (42.0-52.0); HEMOGLOBIN. 8.1 g/dL (14.0-18.0); MEAN CORPUSCULAR HEMOGLOBIN 27.8 pg (28.0-32.0); MEAN CORPUSCULAR HGB CONC 33.3 g/dL (31.0-37.0); MEAN CORPUSCULAR VOLUME 83.5 fL (80.0-94.0); MEAN PLATELET VOLUME 8.3 fl (7.4-10.4); PLATELET 283 x1000/uL (130-400); RED CELL DISTRIBUTION WIDTH 16.7 % (11.6-14.6)
[2024-04-03 06:11] LABS: CALCIUM 8.6 mg/dL (8.7-10.4)
[2024-04-03 06:14] LABS: INR 1.7; PROTHROMBIN TIME 18.4 sec (9.6-11.0)
[2024-04-03 06:27] LABS: CREATININE 11.1 mg/dL (0.6-1.3)
[2024-04-03 06:46] LABS: DIFFERENTIAL COMMENT 1
[2024-04-03] MEDS: PANTOPRAZOLE SODIUM 40 MG/VIAL IV SCH (09:00)
[2024-04-03] MEDS ORDERED: MIDAZOLAM HCL 2 MG/2 ML VIAL ONE (10:09)
[2024-04-03] MEDS ORDERED: ROCURONIUM BROMIDE 10MG/ML VIAL 5ML IV ONE (10:09)
[2024-04-03 12:57] LABS: INR 1.8; PROTHROMBIN TIME 19.6 sec (9.6-11.0)
[2024-04-03] MEDS: PHYTONADIONE 10MG/ML INJ SUBCUT NR (14:03)
[2024-04-03 14:49] LABS: PLATELET ESTIMATE NORMAL
[2024-04-03 14:50] LABS: ANISOCYTOSIS 1+
[2024-04-04] VITALS (91 sets, daily range): BP systolic 115–176; BP diastolic 37–109; PULSE 76–92; RESP 11–27; TEMP 36.55848–37.2252; O2SAT 95–100
[2024-04-04 05:39] LABS: POTASSIUM 3.4 mEq/L (3.5-5.1)
[2024-04-04 05:40] LABS: CALCIUM 8.3 mg/dL (8.7-10.4)
[2024-04-04 05:54] LABS: HEMOGLOBIN. 7.4 g/dL (14.0-18.0); MEAN CORPUSCULAR HEMOGLOBIN 27.8 pg (28.0-32.0); MEAN CORPUSCULAR HGB CONC 33.7 g/dL (31.0-37.0); MEAN CORPUSCULAR VOLUME 82.6 fL (80.0-94.0); MEAN PLATELET VOLUME 7.8 fl (7.4-10.4); PLATELET 279 x1000/uL (130-400); RED BLOOD CELL COUNT 2.66 mill/uL (4.7-6.1); RED CELL DISTRIBUTION WIDTH 16.8 % (11.6-14.6); WHITE BLOOD COUNT 12.1 x1000/uL (4.5-11.0)
[2024-04-04 05:59] LABS: INR 1.5; PROTHROMBIN TIME 16.1 sec (9.6-11.0)
[2024-04-04 06:15] LABS: CREATININE 9.2 mg/dL (0.6-1.3)
[2024-04-04 06:44] LABS: DIFFERENTIAL COMMENT 1
[2024-04-04] MEDS: MORPHINE SULFATE 4 MG/ML INJ (FOR IV/IM USE) IV PRN (08:36)
[2024-04-04] MEDS ORDERED: AMLODIPINE 5MG TABLET NG SCH (09:00)
[2024-04-04] MEDS: HYDRALAZINE HCL 25MG TABLET NG SCH (09:15)
[2024-04-04] MEDS: AMLODIPINE 2.5MG TABLET PO NR (09:55)
[2024-04-04 13:11] LABS: ANISOCYTOSIS 1+; PLATELET ESTIMATE NORMAL
[2024-04-04] MEDS: PHYTONADIONE 10MG/ML INJ SUBCUT NR (13:34)
[2024-04-04] MEDS: AMLODIPINE 5MG TABLET NG SCH (22:56)
[2024-04-05] VITALS (25 sets, daily range): BP systolic 129–188; BP diastolic 52–64; PULSE 74–93; RESP 16–24; TEMP 36.33624–37.05852; O2SAT 97–100
[2024-04-05 06:13] LABS: CALCIUM 8.8 mg/dL (8.7-10.4); POTASSIUM 3.5 mEq/L (3.5-5.1)
[2024-04-05 06:17] LABS: HEMATOCRIT. 23.9 % (42.0-52.0); MEAN CORPUSCULAR HEMOGLOBIN 28.2 pg (28.0-32.0); MEAN CORPUSCULAR HGB CONC 33.7 g/dL (31.0-37.0); MEAN CORPUSCULAR VOLUME 83.6 fL (80.0-94.0); MEAN PLATELET VOLUME 7.7 fl (7.4-10.4); PLATELET 299 x1000/uL (130-400); RED BLOOD CELL COUNT 2.85 mill/uL (4.7-6.1); RED CELL DISTRIBUTION WIDTH 16.3 % (11.6-14.6); WHITE BLOOD COUNT 13.8 x1000/uL (4.5-11.0)
[2024-04-05 06:23] LABS: DIFFERENTIAL COMMENT 1
[2024-04-05 06:48] LABS: CREATININE 7.8 mg/dL (0.6-1.3)
[2024-04-05] MEDS: PHYTONADIONE 10MG/ML INJ SUBCUT NR (13:00)
[2024-04-05] MEDS ORDERED: DIATR MEGLU/DIATRIZOATE SOLN 30ML PO NR (13:00)
[2024-04-05] MEDS ORDERED: LANTUSUD SUBCUT (13:28)
[2024-04-05] MEDS ORDERED: SEVE800T8 PO (13:28)
[2024-04-05] MEDS ORDERED: COR12 NG (13:28)
[2024-04-05] MEDS ORDERED: AMLO5TAB88 NG (13:28)
[2024-04-05] MEDS ORDERED: HYDR25TA78 NG (13:28)
[2024-04-05] MEDS ORDERED: CALC667C PO (13:28)
[2024-04-05] MEDS ORDERED: DIATR MEGLU/DIATRIZOATE SOLN 30ML ONE (14:33)
[2024-04-05 16:56] LABS: ANISOCYTOSIS 1+; PLATELET ESTIMATE NORMAL
== END 2024-04-05 22:02 | DRG 3 ==
LOC: ER 10:31 → 5WST 12:22 → EDBEDREQ 12:23 → EDBEDREQTM 12:23 → 5EST 22:42 → CVICU 03-08 05:29 → MICUNO 03-21 12:19 → 5EST 03-26 02:59 → MICUNO 04-02 19:58 → 5EST 04-04 22:00
PROVIDERS: ADMIT Internal Medicine; ATTEND Internal Medicine
PROC: 5A1D70Z Performance of Urinary Filtration, Intermittent, Less than 6 Hours Per Day (ICD-10-PCS; 2024-02-29)
PROC: 5A1D70Z Performance of Urinary Filtration, Intermittent, Less than 6 Hours Per Day (ICD-10-PCS; 2024-03-01)
PROC: 5A1D70Z Performance of Urinary Filtration, Intermittent, Less than 6 Hours Per Day (ICD-10-PCS; 2024-03-03)
PROC: 5A1D70Z Performance of Urinary Filtration, Intermittent, Less than 6 Hours Per Day (ICD-10-PCS; 2024-03-05)
PROC: 5A1D70Z Performance of Urinary Filtration, Intermittent, Less than 6 Hours Per Day (ICD-10-PCS; 2024-03-07)
PROC: 5A1955Z Respiratory Ventilation, Greater than 96 Consecutive Hours (ICD-10-PCS; principal; 2024-03-08)
PROC: 0BH17EZ Insertion of Endotracheal Airway into Trachea, Via Natural or Artificial Opening (ICD-10-PCS; 2024-03-08)
PROC: 5A1D70Z Performance of Urinary Filtration, Intermittent, Less than 6 Hours Per Day (ICD-10-PCS; 2024-03-09)
PROC: 5A1D70Z Performance of Urinary Filtration, Intermittent, Less than 6 Hours Per Day (ICD-10-PCS; 2024-03-10)
PROC: 5A1D70Z Performance of Urinary Filtration, Intermittent, Less than 6 Hours Per Day (ICD-10-PCS; 2024-03-13)
PROC: 5A1D70Z Performance of Urinary Filtration, Intermittent, Less than 6 Hours Per Day (ICD-10-PCS; 2024-03-15)
PROC: 5A1D70Z Performance of Urinary Filtration, Intermittent, Less than 6 Hours Per Day (ICD-10-PCS; 2024-03-16)
PROC: 5A1D70Z Performance of Urinary Filtration, Intermittent, Less than 6 Hours Per Day (ICD-10-PCS; 2024-03-18)
PROC: 02HV33Z Insertion of Infusion Device into Superior Vena Cava, Percutaneous Approach (ICD-10-PCS; 2024-03-20)
PROC: B548ZZA Ultrasonography of Superior Vena Cava, Guidance (ICD-10-PCS; 2024-03-20)
PROC: 0B110F4 Bypass Trachea to Cutaneous with Tracheostomy Device, Open Approach (ICD-10-PCS; 2024-03-21)
PROC: 30233N1 Transfusion of Nonautologous Red Blood Cells into Peripheral Vein, Percutaneous Approach (ICD-10-PCS; 2024-03-22)
PROC: 5A1D70Z Performance of Urinary Filtration, Intermittent, Less than 6 Hours Per Day (ICD-10-PCS; 2024-03-22)
PROC: 02HV33Z Insertion of Infusion Device into Superior Vena Cava, Percutaneous Approach (ICD-10-PCS; 2024-03-23)
PROC: B548ZZA Ultrasonography of Superior Vena Cava, Guidance (ICD-10-PCS; 2024-03-23)
PROC: 5A1D70Z Performance of Urinary Filtration, Intermittent, Less than 6 Hours Per Day (ICD-10-PCS; 2024-03-24)
PROC: 5A1D70Z Performance of Urinary Filtration, Intermittent, Less than 6 Hours Per Day (ICD-10-PCS; 2024-03-27)
PROC: 5A1D70Z Performance of Urinary Filtration, Intermittent, Less than 6 Hours Per Day (ICD-10-PCS; 2024-03-29)
PROC: 5A1D70Z Performance of Urinary Filtration, Intermittent, Less than 6 Hours Per Day (ICD-10-PCS; 2024-03-31)
PROC: 04BL0ZZ Excision of Left Femoral Artery, Open Approach (ICD-10-PCS; 2024-04-02)
PROC: 0DB78ZX Excision of Stomach, Pylorus, Via Natural or Artificial Opening Endoscopic, Diagnostic (ICD-10-PCS; 2024-04-03)
PROC: 0DH63UZ Insertion of Feeding Device into Stomach, Percutaneous Approach (ICD-10-PCS; 2024-04-03)
PROC: 0DB68ZX Excision of Stomach, Via Natural or Artificial Opening Endoscopic, Diagnostic (ICD-10-PCS; 2024-04-03)
PROC: 30233K1 Transfusion of Nonautologous Frozen Plasma into Peripheral Vein, Percutaneous Approach (ICD-10-PCS; 2024-04-03)
PROC: 5A1D70Z Performance of Urinary Filtration, Intermittent, Less than 6 Hours Per Day (ICD-10-PCS; 2024-04-03)
PROC: 5A1D70Z Performance of Urinary Filtration, Intermittent, Less than 6 Hours Per Day (ICD-10-PCS; 2024-04-04)
DX: A41.9 Sepsis, unspecified organism (principal); G92.8 Other toxic encephalopathy; N18.6 End stage renal disease; J69.0 Pneumonitis due to inhalation of food and vomit; J96.01 Acute respiratory failure with hypoxia; J12.82 Pneumonia due to coronavirus disease 2019; U07.1 COVID-19; I13.2 Hypertensive heart and chronic kidney disease with heart failure and with stage 5 chronic kidney disease, or end stage renal disease; E87.3 Alkalosis; I50.32 Chronic diastolic (congestive) heart failure; J68.0 Bronchitis and pneumonitis due to chemicals, gases, fumes and vapors; I47.20 Ventricular tachycardia, unspecified; K31.84 Gastroparesis; E05.90 Thyrotoxicosis, unspecified without thyrotoxic crisis or storm; E11.22 Type 2 diabetes mellitus with diabetic chronic kidney disease; E11.43 Type 2 diabetes mellitus with diabetic autonomic (poly)neuropathy; E11.51 Type 2 diabetes mellitus with diabetic peripheral angiopathy without gangrene; E11.65 Type 2 diabetes mellitus with hyperglycemia; R65.20 Severe sepsis without septic shock; F20.9 Schizophrenia, unspecified; G20.A1 Parkinson's disease without dyskinesia, without mention of fluctuations; I72.4 Aneurysm of artery of lower extremity; N40.0 Benign prostatic hyperplasia without lower urinary tract symptoms; D63.8 Anemia in other chronic diseases classified elsewhere; K29.70 Gastritis, unspecified, without bleeding; K21.00 Gastro-esophageal reflux disease with esophagitis, without bleeding; R13.10 Dysphagia, unspecified; L85.3 Xerosis cutis; L89.009 Pressure ulcer of unspecified elbow, unspecified stage; L89.159 Pressure ulcer of sacral region, unspecified stage; L89.520 Pressure ulcer of left ankle, unstageable; S50.02XA Contusion of left elbow, initial encounter; S50.01XA Contusion of right elbow, initial encounter; X58.XXXA Exposure to other specified factors, initial encounter; K29.80 Duodenitis without bleeding; Y93.89 Activity, other specified; Y92.89 Other specified places as the place of occurrence of the external cause; Y99.8 Other external cause status; Z86.73 Personal history of transient ischemic attack (TIA), and cerebral infarction without residual deficits; Z74.01 Bed confinement status; Z89.422 Acquired absence of other left toe(s)
CPT/HCPCS: 31500; 36415; 36556; 36573; 36600; 70551; 71045; 74018; 74177; 75635; 76937; 80048; 80051; 80053; 80202; 82010; 82040; 82140; 82375; 82805; 82962; 83036; 83605; 83735; 84100; 84134; 84145; 84443; 84478; 84484; 85014; 85018; 85025; 85027; 86705; 86709; 86850; 86900; 86920; 86927; 87070; 87077; 87186; 87340; 87426; 88304; 88305; 88313; 88341; 90935; 92610; 93005; 93306; 94003; 94640; 99285; A6261; C1725; C1752; J0295; J0360; J0690; J0692; J0696; J0885; J1100; J1170; J1644; J1815; J2185; J2250; J2270; J2405; J2470; J2704; J2765; J2997; J3370; J3430; J3480; J3490; J7030; J7040; J7042; J7050; J7060; J7608; P9016; P9017; P9041; Q9963; Q9967